=== PATIENT | female | born 1960 | race Two or more races ===

== ENCOUNTER 2023-10-08 10:00 | Inpatient (IN) | payer MEDICAID, OTHER ==
[~2023-10-08] VITALS: Ht 179.1 cm; Wt 62.7 kg
[2023-10-08 12:22] LABS: Basophils # (auto) 0 10 ^3/uL (0-0.2); Basophils % (auto) 0.7 % (0.0-2.0); Eosinophils # (auto) 0.1 10 ^3/uL (0-0.8); Eosinophils % (auto) 1.4 % (0.0-7.0); Hematocrit 34.9 % (36.0-46.0); Hemoglobin 11.8 g/dL (12.2-16.2); Lymphocytes # (auto) 1.7 10 ^3/uL (0.4-5.4); Lymphocytes % (auto) 36.8 % (10.0-50.0); Mean Corpuscular Hemoglobin 34.1 pg (28.0-32.0); Mean Corpuscular Hgb Conc. 33.9 g/dL (32.0-36.0); Mean Corpuscular Volume 100.5 fL (80.0-100.0); Monocytes # (auto) 0.8 10 ^3/uL (0-1.3); Neutrophils # (auto) 2.1 10 ^3/uL (1.6-8.6); Neutrophils % (auto) 45.1 % (37.0-80.0); Nucleated Red Blood Cells % 1.3 %; Red Blood Cells 3.47 10^6/uL (4.0-5.20); Red Cell Distribution Width 13.7 % (11.8-14.3); White Blood Cell 4.7 10^3/uL (4.4-10.8)
[2023-10-08 12:23] LABS: Alanine Aminotransferase 19 U/L (7-40); Albumin 1.9 g/dL (3.2-4.8); Alkaline Phosphatase 135 U/L (46-116); Anion Gap 3 (5-15); Aspartate Aminotransferase 67 U/L (13-40); Calcium 7.3 mg/dL (8.7-10.4); Carbon Dioxide 27 mmol/L (20-30); Chloride 104 mmol/L (98-107); Glucose 76 mg/dL (74-106); Potassium 3.6 mmol/L (3.5-5.1); Sodium 134 mmol/L (136-145)
[2023-10-08 12:24] LABS: Bilirubin, Total 3.3 mg/dL (0.2-1.0); Total Protein 8.3 g/dL (5.7-8.2)
[2023-10-08 12:28] LABS: INR 1.6 (0.9-1.15); Prothrombin Time 16.4 sec (9.3-11.8)
[2023-10-08 12:30] LABS: BUN/Creatinine Ratio 6.4 (10.0-20.0); Blood Urea Nitrogen < 5 mg/dL (9-23)
[2023-10-08] MEDS: MORPHINE SULFATE 4 MG/ML SYR/VIAL IV ONE (12:35)
[2023-10-08] MEDS: CEFEPIME 2GM/50ML NS 50 ML IV ONE (12:36)
[2023-10-08] MEDS: ONDANSETRON HCL 4 MG/2 ML VIAL IV ONE (12:36)
[2023-10-08 13:17] LABS: Platelet Estimate Decreased
[2023-10-08 13:18] LABS: Macrocytosis Slight
[2023-10-08 13:23] VITALS: PULSE 80; RESP 30; O2SAT 98
[2023-10-08] MEDS ORDERED: ACETAMINOPHEN 325 MG TAB PO PRN (14:15)
[2023-10-08 16:26] LABS: Body Fluid Red Blood Cells 153 CUMM (0-2000); Body Fluid White Blood Cells 35 CUMM (0-200)
[2023-10-08 16:28] LABS: Body Fluid Polymorphonuclear 3 % (0-25)
[2023-10-08] MEDS: ALBUMIN 25% 100 ML IV SCH (16:54)
[2023-10-08] MEDS ORDERED: FUR20T PO (20:26)
[2023-10-08] MEDS ORDERED: ZOFR4T PO (20:26)
[2023-10-08 21:00] VITALS: BP 98/47; PULSE 89; RESP 18; TEMP 98.2; O2SAT 99
[2023-10-08] MEDS: SODIUM CHLOR 0.9% PF (SALINE LOCK) 10ML VIAL/SYR IV SCH (22:05)
[2023-10-09 00:41] VITALS: BP 95/47; PULSE 92; RESP 16; TEMP 98; O2SAT 97
[2023-10-09] MEDS: HYDROcodone-ACET 5/325MG TAB PO PRN (01:58)
[2023-10-09 04:44] VITALS: BP 97/49; PULSE 86; RESP 16; TEMP 97.8; O2SAT 96
[2023-10-09 08:00] VITALS: BP 107/51; PULSE 69; PULSE 79; RESP 16; RESP 20; TEMP 98; O2SAT 100; O2SAT 93
[2023-10-09] MEDS: ALBUMIN 25% 100 ML IV SCH ×2 (09:48→17:00)
[2023-10-09] MEDS: PANTOPRAZOLE 40 MG/10 ML VIAL INJ IV SCH (09:58)
[2023-10-09] MEDS: DOCUSATE SOD 100 MG CAP PO PRN (10:12)
[2023-10-09] MEDS: ONDANSETRON HCL 4 MG/2 ML VIAL IV PRN (10:12)
[2023-10-09] MEDS: BISMUTH SUBSALICYLATE 262MG/15ml ORAL Susp PO PRN (11:05)
[2023-10-09 12:06] LABS: Protein, Body Fluid 2.3 g/dL (.)
[2023-10-09] MEDS: SPIRONOLACTONE 25 MG TAB PO ONE (13:00)
[2023-10-09] MEDS: FUROSEMIDE 40 MG TAB PO ONE (13:00)
[2023-10-09 14:15] VITALS: BP 109/51; PULSE 91; RESP 18; TEMP 98.2; O2SAT 98
[2023-10-09 15:07] LABS: Hemoglobin 10.9 g/dL (12.2-16.2); Red Cell Distribution Width 13.4 % (11.8-14.3); White Blood Cell 5.8 10^3/uL (4.4-10.8)
[2023-10-09 15:08] LABS: Hematocrit 31.6 % (36.0-46.0); Mean Corpuscular Hemoglobin 34.6 pg (28.0-32.0); Mean Corpuscular Hgb Conc. 34.5 g/dL (32.0-36.0); Mean Corpuscular Volume 100.2 fL (80.0-100.0); Red Blood Cells 3.15 10^6/uL (4.0-5.20)
[2023-10-09 15:23] LABS: Band Neutrophils % (manual) 0; Basophils % (manual) 0 (0.0-2.0); Blast Cells 0; Eosinophils % (manual) 0 (0-7); Metamyelocytes % 0; Myelocytes % 0; Promyelocytes % 0; Reactive Lymphocytes 0
[2023-10-09 15:28] LABS: Albumin 2.1 g/dL (3.2-4.8); Alkaline Phosphatase 105 U/L (46-116); Anion Gap 2 (5-15); Aspartate Aminotransferase 39 U/L (13-40); BUN/Creatinine Ratio 9.6 (10.0-20.0); Bilirubin, Total 2.6 mg/dL (0.2-1.0); Blood Urea Nitrogen 7 mg/dL (9-23); Calcium 7.7 mg/dL (8.7-10.4); Carbon Dioxide 26 mmol/L (20-30); Chloride 107 mmol/L (98-107); Glucose 101 mg/dL (74-106); Potassium 3.9 mmol/L (3.5-5.1); Sodium 135 mmol/L (136-145); Total Protein 6.3 g/dL (5.7-8.2)
[2023-10-09 15:29] LABS: Alanine Aminotransferase 9 U/L (7-40)
[2023-10-09 16:37] LABS: Lymphocytes % (manual) 22 (10.0-50.0); Macrocytosis Slight; Monocytes % (manual) 18 (0-12); Platelet Estimate Decreased
[2023-10-09 20:00] VITALS: RESP 18
[2023-10-09 21:00] VITALS: BP 114/63; PULSE 95; RESP 21; TEMP 98.6; O2SAT 98
[2023-10-10 05:00] VITALS: BP 119/69; PULSE 86; RESP 21; TEMP 97.6; O2SAT 97
[2023-10-10 06:28] LABS: Folate (Folic Acid) 7.01 ng/mL (>5.38)
[2023-10-10 06:29] LABS: Alanine Aminotransferase 10 U/L (7-40); Albumin 2.4 g/dL (3.2-4.8); Alkaline Phosphatase 97 U/L (46-116); Anion Gap 3 (5-15); Aspartate Aminotransferase 42 U/L (13-40); BUN/Creatinine Ratio 10.5 (10.0-20.0); Blood Urea Nitrogen 8 mg/dL (9-23); Calcium 7.9 mg/dL (8.7-10.4); Carbon Dioxide 27 mmol/L (20-30); Chloride 104 mmol/L (98-107); Glucose 104 mg/dL (74-106); Potassium 3.7 mmol/L (3.5-5.1); Sodium 134 mmol/L (136-145)
[2023-10-10 06:30] LABS: Bilirubin, Total 3.1 mg/dL (0.2-1.0); Total Protein 6.8 g/dL (5.7-8.2)
[2023-10-10 06:56] LABS: Basophils # (auto) 0 10 ^3/uL (0-0.2); Basophils % (auto) 0.6 % (0.0-2.0); Eosinophils # (auto) 0.1 10 ^3/uL (0-0.8); Hematocrit 33.1 % (36.0-46.0); Hemoglobin 11.1 g/dL (12.2-16.2); Lymphocytes # (auto) 1.6 10 ^3/uL (0.4-5.4); Lymphocytes % (auto) 27.3 % (10.0-50.0); Mean Corpuscular Hgb Conc. 33.7 g/dL (32.0-36.0); Mean Corpuscular Volume 100.9 fL (80.0-100.0); Monocytes # (auto) 1.2 10 ^3/uL (0-1.3); Neutrophils # (auto) 2.9 10 ^3/uL (1.6-8.6); Neutrophils % (auto) 49.9 % (37.0-80.0); Nucleated Red Blood Cells % 0.6 %; Red Blood Cells 3.28 10^6/uL (4.0-5.20); Red Cell Distribution Width 13.3 % (11.8-14.3); White Blood Cell 5.9 10^3/uL (4.4-10.8)
[2023-10-10 06:59] LABS: Monocytes % (auto) 20.2 % (0.0-12.0)
[2023-10-10] MEDS ORDERED: [UNRECOGNIZED DRUG - CODE] PO (07:54)
[2023-10-10] MEDS ORDERED: SPIR25TA PO (07:54)
[2023-10-10] MEDS ORDERED: FURO40TA4 PO (07:54)
[2023-10-10 09:04] VITALS: BP 118/65; PULSE 81; RESP 15; TEMP 97.9; O2SAT 99
[2023-10-10] MEDS ORDERED: FUROSEMIDE 40 MG TAB PO SCH (10:00)
[2023-10-10] MEDS ORDERED: SPIRONOLACTONE 25 MG TAB PO SCH (10:00)
[2023-10-13 10:01] LABS: Hepatitis B Surface Antigen Negative (Negative)
[2023-10-13 10:22] LABS: Hepatitis A Ab IgM Negative; Hepatitis B Core IgM Negative
[2023-10-13 12:18] LABS: Hepatitis C Antibody Reactive (Negative)
== END 2023-10-10 10:00 | disposition home or self-care (01) | DRG 280 ==
LOC: ER 10:00 → OVERFLOW 14:13 → CENTRAL 18:54
PROVIDERS: ADMIT Internal Medicine Geriatric Medicine; ATTEND Internal Medicine Geriatric Medicine
PROC: 0W9G3ZZ Drainage of Peritoneal Cavity, Percutaneous Approach (ICD-10-PCS; principal; 2023-10-08)
DX: K70.31 Alcoholic cirrhosis of liver with ascites (principal); E43 Unspecified severe protein-calorie malnutrition; D68.59 Other primary thrombophilia; I95.89 Other hypotension; D69.6 Thrombocytopenia, unspecified; D63.8 Anemia in other chronic diseases classified elsewhere; D53.9 Nutritional anemia, unspecified; D50.9 Iron deficiency anemia, unspecified; R74.01 Elevation of levels of liver transaminase levels; Z68.1 Body mass index [BMI] 19.9 or less, adult; Z79.899 Other long term (current) drug therapy
CPT/HCPCS: 36415; 49083; 76705; 76942; 80053; 80074; 80320; 82140; 82607; 82746; 83605; 83986; 85007; 85025; 85027; 85610; 87205; 89051; 93005; G0378; J0692; J2405; J2470; P9047

== ENCOUNTER 2023-10-21 06:53 | Inpatient (IN) | payer MEDICAID ==
[2023-10-21] VITALS (7 sets, daily range): BP systolic 117–124; BP diastolic 64–70; PULSE 71–81; RESP 14–75; TEMP 97.1–97.6; O2SAT 97–100
[~2023-10-21] VITALS: Ht 175.3 cm; Wt 56.2 kg
[~2023-10-21 06:53] MED LIST: FURO20TA4 PO; FURO40TA4 PO; SPIR25TA PO; ZOFR4T PO; [UNRECOGNIZED DRUG - CODE] PO
[2023-10-21 07:37] LABS: Basophils % (auto) 0.6 % (0.0-2.0); Eosinophils # (auto) 0 10 ^3/uL (0-0.8); Eosinophils % (auto) 0.1 % (0.0-7.0); Lymphocytes # (auto) 1.3 10 ^3/uL (0.4-5.4); White Blood Cell 8.4 10^3/uL (4.4-10.8)
[2023-10-21 07:40] LABS: Alanine Aminotransferase 13 U/L (7-40); Albumin 2.5 g/dL (3.2-4.8); Alkaline Phosphatase 91 U/L (46-116); Anion Gap 6 (5-15); Aspartate Aminotransferase 51 U/L (13-40); BUN/Creatinine Ratio 11.4 (10.0-20.0); Blood Urea Nitrogen 9 mg/dL (9-23); Calcium 8.1 mg/dL (8.7-10.4); Carbon Dioxide 25 mmol/L (20-30); Chloride 99 mmol/L (98-107); Glucose 95 mg/dL (74-106); Potassium 3.8 mmol/L (3.5-5.1); Sodium 130 mmol/L (136-145)
[2023-10-21 07:42] LABS: Basophils # (auto) 0 10 ^3/uL (0-0.2); Hematocrit 37.8 % (36.0-46.0); Hemoglobin 13.2 g/dL (12.2-16.2); Lymphocytes % (auto) 15.8 % (10.0-50.0); Mean Corpuscular Hemoglobin 35.1 pg (28.0-32.0); Mean Corpuscular Hgb Conc. 34.9 g/dL (32.0-36.0); Mean Corpuscular Volume 100.5 fL (80.0-100.0); Monocytes # (auto) 1.2 10 ^3/uL (0-1.3); Monocytes % (auto) 13.8 % (0.0-12.0); Neutrophils # (auto) 5.8 10 ^3/uL (1.6-8.6); Neutrophils % (auto) 69.7 % (37.0-80.0); Nucleated Red Blood Cells % 0.2 %; Red Blood Cells 3.76 10^6/uL (4.0-5.20); Red Cell Distribution Width 13.7 % (11.8-14.3)
[2023-10-21] MEDS: ONDANSETRON HCL 4 MG/2 ML VIAL IV ONE (07:56)
[2023-10-21] MEDS: ASPirin 325 MG TAB PO ONE (07:56)
[2023-10-21] MEDS: MORPHINE SULFATE 4 MG/ML SYR/VIAL IV ONE (07:57)
[2023-10-21] MEDS: SODIUM CHLORIDE 0.9% 1,000 ML IV ONE (07:58)
[2023-10-21] MEDS ORDERED: HYDROcodone-ACET 5/325MG TAB PO PRN (09:45)
[2023-10-21] MEDS ORDERED: ACETAMINOPHEN 325 MG TAB PO PRN (09:45)
[2023-10-21] MEDS ORDERED: ONDANSETRON HCL 4 MG/2 ML VIAL IV PRN (09:45)
[2023-10-21] MEDS ORDERED: DOCUSATE SOD 100 MG CAP PO PRN (09:45)
[2023-10-21] MEDS: FUROSEMIDE 40 MG TAB PO SCH (10:00)
[2023-10-21] MEDS: SPIRONOLACTONE 25 MG TAB PO SCH (10:00)
[2023-10-21 10:28] LABS: INR 1.49 (0.9-1.15); Partial Thromboplastin Time 32.3 SEC (24.5-34.5); Prothrombin Time 15.3 sec (9.3-11.8)
[2023-10-21] MEDS: SODIUM CHLOR 0.9% PF (SALINE LOCK) 10ML VIAL/SYR IV SCH (13:29)
[2023-10-21] MEDS ORDERED: GADOTERATE MEG 10 MMOL/20ml INJ (0.5MMOL/ml) IV ONE (13:35)
[2023-10-21 16:26] LABS: Body Fluid Polymorphonuclear 15 % (0-25); Body Fluid Red Blood Cells 225 CUMM (0-2000); Body Fluid White Blood Cells 260 CUMM (0-200)
[2023-10-22] VITALS (7 sets, daily range): BP systolic 101–148; BP diastolic 55–76; PULSE 0–91; RESP 15–16; TEMP 97–97.9; O2SAT 97–98
[2023-10-22] MEDS ORDERED: MORPHINE SULFATE INJ 2 MG/ml SYRG IV PRN (09:45)
[2023-10-22] MEDS: PANTOPRAZOLE 40 MG/10 ML VIAL INJ IV ONE (09:45)
[2023-10-22 11:25] LABS: CRP High Sensitivity 0.98 mg/dL (<1.0)
[2023-10-22 11:26] LABS: Bilirubin, Direct 2.4 mg/dL (<0.3)
[2023-10-22 11:34] LABS: INR 1.51 (0.9-1.15); Partial Thromboplastin Time 32.2 SEC (24.5-34.5); Prothrombin Time 15.5 sec (9.3-11.8)
[2023-10-22] MEDS: PANTOPRAZOLE 40 MG/10 ML VIAL INJ IV SCH (12:54)
[2023-10-22 13:07] LABS: Protein, Body Fluid 3.6 g/dL (.)
[2023-10-22] MEDS ORDERED: GASTROGRAFIN 120 ML SOL ONE (13:48)
[2023-10-22] MEDS ORDERED: PANT40TA2 PO (16:56)
[2023-10-22] MEDS ORDERED: HYDR-3682 PO (16:56)
[2023-10-22] MEDS: FOLIC ACID 1 MG, MULTIPLE VITAMIN 10 ML, MAGNESIUM SULF SDV 50% 8 MEQ, THIAMINE INJ 100... INJ SCH (18:04)
[2023-10-23 09:00] VITALS: BP 118/73; PULSE 90; RESP 19; TEMP 98; O2SAT 94
[2023-10-23 13:00] VITALS: BP 112/70; PULSE 84; RESP 19; TEMP 98.1; O2SAT 95
[2023-10-23 16:50] VITALS: BP 107/68; PULSE 71; RESP 17; TEMP 98.4; O2SAT 100
== END 2023-10-23 20:55 | disposition home or self-care (01) | DRG 280 ==
LOC: ER 06:53 → OVERFLOW 09:41 → WEST WING 10:53
PROVIDERS: ADMIT Internal Medicine; ATTEND Internal Medicine
PROC: 0W9G3ZZ Drainage of Peritoneal Cavity, Percutaneous Approach (ICD-10-PCS; principal; 2023-10-21)
DX: K70.31 Alcoholic cirrhosis of liver with ascites (principal); K56.609 Unspecified intestinal obstruction, unspecified as to partial versus complete obstruction; E43 Unspecified severe protein-calorie malnutrition; K43.6 Other and unspecified ventral hernia with obstruction, without gangrene; K80.20 Calculus of gallbladder without cholecystitis without obstruction; R23.0 Cyanosis; K76.89 Other specified diseases of liver; R07.89 Other chest pain; Z68.1 Body mass index [BMI] 19.9 or less, adult
CPT/HCPCS: 36415; 49083; 71045; 74018; 74176; 74183; 74250; 76705; 76942; 80053; 82105; 82247; 82248; 83615; 83880; 83986; 84484; 85025; 85610; 85730; 86141; 87081; 87205; 89051; 93005; 96374; 96375; G0378; J2405; J2470

== ENCOUNTER 2023-10-31 06:19 | Emergency (ER) | payer MEDICAID ==
[~2023-10-31] VITALS: Ht 177.8 cm; Wt 51.8 kg
[~2023-10-31 06:19] MED LIST changes: -FURO20TA4 PO; +HYDR-3682 PO; +PANT40TA2 PO
[2023-10-31 06:54] VITALS: TEMP 96.7
[2023-10-31 06:55] VITALS: PULSE 87; RESP 22; O2SAT 98
[2023-10-31] MEDS: fentaNYL CITRATE 100 MCG/2 ML VL IV ONE ×3 (07:03→07:31)
[2023-10-31 07:35] LABS: Eosinophils # (auto) 0 10 ^3/uL (0-0.8); Eosinophils % (auto) 0.4 % (0.0-7.0); Nucleated Red Blood Cells % 0.4 %; White Blood Cell 5.8 10^3/uL (4.4-10.8)
[2023-10-31 07:41] LABS: Basophils # (auto) 0.1 10 ^3/uL (0-0.2); Basophils % (auto) 0.9 % (0.0-2.0); Hematocrit 37.1 % (36.0-46.0); Hemoglobin 12.8 g/dL (12.2-16.2); Lymphocytes # (auto) 1.3 10 ^3/uL (0.4-5.4); Lymphocytes % (auto) 22.6 % (10.0-50.0); Mean Corpuscular Hgb Conc. 34.4 g/dL (32.0-36.0); Mean Corpuscular Volume 101.8 fL (80.0-100.0); Monocytes % (auto) 17.3 % (0.0-12.0); Neutrophils # (auto) 3.4 10 ^3/uL (1.6-8.6); Neutrophils % (auto) 58.8 % (37.0-80.0); Red Blood Cells 3.65 10^6/uL (4.0-5.20)
[2023-10-31] MEDS: MIDAZOLAM HCL 2MG/2ML 2ml VIAL (1mg/ml) IV ONE (07:45)
[2023-10-31 07:53] LABS: Alanine Aminotransferase 15 U/L (7-40); Albumin 2.5 g/dL (3.2-4.8); Alkaline Phosphatase 89 U/L (46-116); Anion Gap 4 (5-15); Aspartate Aminotransferase 42 U/L (13-40); BUN/Creatinine Ratio 9.8 (10.0-20.0); Blood Urea Nitrogen 8 mg/dL (9-23); Calcium 8.4 mg/dL (8.7-10.4); Carbon Dioxide 27 mmol/L (20-30); Chloride 102 mmol/L (98-107); Glucose 88 mg/dL (74-106); Potassium 3.6 mmol/L (3.5-5.1); Sodium 133 mmol/L (136-145)
[2023-10-31 07:54] LABS: Bilirubin, Total 3.3 mg/dL (0.2-1.0)
[2023-10-31 08:00] VITALS: PULSE 89; RESP 18; O2SAT 98
[2023-10-31 10:14] VITALS: BP 127/56; PULSE 79; RESP 22; O2SAT 98
== END 2023-10-31 11:09 | disposition home or self-care (01) ==
LOC: ER 06:19
DX: K46.0 Unspecified abdominal hernia with obstruction, without gangrene (principal); F14.10 Cocaine abuse, uncomplicated; Z79.899 Other long term (current) drug therapy
CPT/HCPCS: 36415; 74176; 80053; 83605; 85025; 96374; 96376; 99285; J2250; J3010

== ENCOUNTER 2023-11-06 07:09 | Inpatient (IN) | payer MEDICAID ==
[~2023-11-06] VITALS: Ht 177.8 cm; Wt 53.6 kg
[2023-11-06 08:40] VITALS: O2SAT 100
[2023-11-06] MEDS ORDERED: ONDANSETRON HCL 4 MG/2 ML VIAL IV PRN (09:45)
[2023-11-06] MEDS ORDERED: MORPHINE SULFATE INJ 2 MG/ml SYRG IV PRN (09:45)
[2023-11-06 10:05] LABS: Basophils # (auto) 0 10 ^3/uL (0-0.2); Basophils % (auto) 0.5 % (0.0-2.0); Eosinophils # (auto) 0 10 ^3/uL (0-0.8); Eosinophils % (auto) 0.9 % (0.0-7.0); Hemoglobin 12.4 g/dL (12.2-16.2); Lymphocytes # (auto) 1.3 10 ^3/uL (0.4-5.4); Lymphocytes % (auto) 27.8 % (10.0-50.0); Mean Corpuscular Hemoglobin 35.4 pg (28.0-32.0); Mean Corpuscular Hgb Conc. 34.6 g/dL (32.0-36.0); Mean Corpuscular Volume 102.4 fL (80.0-100.0); Monocytes # (auto) 0.8 10 ^3/uL (0-1.3); Monocytes % (auto) 16.9 % (0.0-12.0); Neutrophils # (auto) 2.5 10 ^3/uL (1.6-8.6); Neutrophils % (auto) 53.9 % (37.0-80.0); Nucleated Red Blood Cells % 0.3 %; Platelet Count (auto) 118 10^3/uL (140-450); Red Blood Cells 3.52 10^6/uL (4.0-5.20); Red Cell Distribution Width 13.8 % (11.8-14.3); White Blood Cell 4.6 10^3/uL (4.4-10.8)
[2023-11-06 10:10] LABS: Chloride 101 mmol/L (98-107); Potassium 3.6 mmol/L (3.5-5.1); Sodium 132 mmol/L (136-145)
[2023-11-06 10:11] LABS: Anion Gap 0 (5-15); Calcium 8.2 mg/dL (8.7-10.4); Carbon Dioxide 31 mmol/L (20-30)
[2023-11-06 10:16] LABS: BUN/Creatinine Ratio 12.7 (10.0-20.0); Blood Urea Nitrogen 9 mg/dL (9-23); Glucose 81 mg/dL (74-106)
[2023-11-06] MEDS: SPIRONOLACTONE 25 MG TAB PO SCH (10:21)
[2023-11-06] MEDS: PANTOPRAZOLE 40 MG/10 ML VIAL INJ IV ONE (10:21)
[2023-11-06] MEDS: FUROSEMIDE 40 MG TAB PO SCH (10:21)
[2023-11-06] MEDS ORDERED: NITROGLYCERIN 0.4 MG SL TAB SL PRN (10:45)
[2023-11-06] MEDS: ALBUMIN 25% 50 ML IV SCH (15:49)
[2023-11-06 18:19] VITALS: BP 137/84; PULSE 84; RESP 16; TEMP 98.5; O2SAT 97
[2023-11-06 20:00] VITALS: PULSE 80; RESP 17
[2023-11-06 22:00] VITALS: BP 135/79; PULSE 80; RESP 17; TEMP 98.3; O2SAT 97
[2023-11-06] MEDS: PANTOPRAZOLE 40 MG/10 ML VIAL INJ IV SCH (22:33)
[2023-11-07 01:00] VITALS: BP 101/81; PULSE 78; RESP 17; TEMP 98; O2SAT 97
[2023-11-07 05:00] VITALS: BP 100/55; PULSE 82; RESP 18; TEMP 98.4; O2SAT 100
[2023-11-07 08:03] LABS: Basophils # (auto) 0 10 ^3/uL (0-0.2); Eosinophils # (auto) 0.1 10 ^3/uL (0-0.8); Lymphocytes # (auto) 1.3 10 ^3/uL (0.4-5.4); Mean Corpuscular Hgb Conc. 34.2 g/dL (32.0-36.0); Monocytes # (auto) 0.8 10 ^3/uL (0-1.3); Red Blood Cells 3.06 10^6/uL (4.0-5.20)
[2023-11-07 08:06] LABS: Basophils % (auto) 0.7 % (0.0-2.0); Eosinophils % (auto) 1.7 % (0.0-7.0); Hematocrit 31.1 % (36.0-46.0); Hemoglobin 10.6 g/dL (12.2-16.2); Lymphocytes % (auto) 34.6 % (10.0-50.0); Mean Corpuscular Hemoglobin 34.7 pg (28.0-32.0); Mean Corpuscular Volume 101.5 fL (80.0-100.0); Monocytes % (auto) 21.1 % (0.0-12.0); Neutrophils # (auto) 1.5 10 ^3/uL (1.6-8.6); Neutrophils % (auto) 41.9 % (37.0-80.0); Nucleated Red Blood Cells % 0.1 %; Platelet Count (auto) 96 10^3/uL (140-450); Red Cell Distribution Width 14.2 % (11.8-14.3); White Blood Cell 3.6 10^3/uL (4.4-10.8)
[2023-11-07 08:12] LABS: Alanine Aminotransferase 11 U/L (7-40); Albumin 2.3 g/dL (3.2-4.8); Alkaline Phosphatase 95 U/L (46-116); Aspartate Aminotransferase 35 U/L (13-40); BUN/Creatinine Ratio 11.9 (10.0-20.0); Blood Urea Nitrogen 8 mg/dL (9-23); Glucose 82 mg/dL (74-106)
[2023-11-07 08:13] LABS: Bilirubin, Total 1.6 mg/dL (0.2-1.0); Total Protein 6.6 g/dL (5.7-8.2)
[2023-11-07 08:38] LABS: Anion Gap -2 (5-15); Carbon Dioxide 30 mmol/L (20-30); Chloride 106 mmol/L (98-107); Potassium 3.9 mmol/L (3.5-5.1); Sodium 134 mmol/L (136-145)
[2023-11-07 09:00] VITALS: BP 101/54; PULSE 72; RESP 18; TEMP 98.2; O2SAT 100
[2023-11-07] MEDS: LACTULOSE 20Gm/30ML SOLN PO SCH (09:09)
[2023-11-07] MEDS: DOCUSATE SOD 100 MG CAP PO PRN (09:11)
[2023-11-07 09:25] LABS: INR 1.45 (0.9-1.15); Partial Thromboplastin Time 31.9 SEC (24.5-34.5)
== END 2023-11-07 11:30 | disposition home or self-care (01) | DRG 280 ==
LOC: ER 07:09 → OVERFLOW 10:33 → TELE 15:29 → OVERFLOW 15:31 → CENTRAL 16:52
PROVIDERS: ADMIT Internal Medicine; ATTEND Internal Medicine
PROC: 0W9G3ZZ Drainage of Peritoneal Cavity, Percutaneous Approach (ICD-10-PCS; principal; 2023-11-06)
DX: K70.31 Alcoholic cirrhosis of liver with ascites (principal); E43 Unspecified severe protein-calorie malnutrition; K80.20 Calculus of gallbladder without cholecystitis without obstruction; Z53.29 Procedure and treatment not carried out because of patient's decision for other reasons; K76.89 Other specified diseases of liver; Z88.6 Allergy status to analgesic agent; Z68.1 Body mass index [BMI] 19.9 or less, adult; B19.20 Unspecified viral hepatitis C without hepatic coma
CPT/HCPCS: 36415; 49083; 76705; 76942; 80048; 80053; 85025; 85610; 85730; 96372; G0378; J2470

== ENCOUNTER 2023-11-15 17:57 | Inpatient (IN) | payer MEDICAID ==
[~2023-11-15] VITALS: Ht 165.1 cm; Wt 60.4 kg
[2023-11-15] MEDS ORDERED: DEXTROSE (50%) 50ML SYRG IV ONE (18:15)
[2023-11-15 18:38] LABS: Basophils # (auto) 0 10 ^3/uL (0-0.2); Basophils % (auto) 0.6 % (0.0-2.0); Eosinophils # (auto) 0.1 10 ^3/uL (0-0.8); Eosinophils % (auto) 1.5 % (0.0-7.0); Hematocrit 34.4 % (36.0-46.0); Hemoglobin 11.6 g/dL (12.2-16.2); Lymphocytes # (auto) 1.4 10 ^3/uL (0.4-5.4); Lymphocytes % (auto) 30.2 % (10.0-50.0); Mean Corpuscular Hemoglobin 34.1 pg (28.0-32.0); Mean Corpuscular Hgb Conc. 33.7 g/dL (32.0-36.0); Mean Corpuscular Volume 101.4 fL (80.0-100.0); Monocytes # (auto) 0.8 10 ^3/uL (0-1.3); Monocytes % (auto) 17.2 % (0.0-12.0); Neutrophils # (auto) 2.3 10 ^3/uL (1.6-8.6); Neutrophils % (auto) 50.5 % (37.0-80.0); Nucleated Red Blood Cells % 0.1 %; Platelet Count (auto) 100 10^3/uL (140-450); Red Blood Cells 3.39 10^6/uL (4.0-5.20); Red Cell Distribution Width 13.9 % (11.8-14.3); White Blood Cell 4.6 10^3/uL (4.4-10.8)
[2023-11-15] MEDS: SODIUM CHLORIDE 0.9% 500 ML IV ONE (18:45)
[2023-11-15 18:55] LABS: Alanine Aminotransferase 16 U/L (7-40); Albumin 2.4 g/dL (3.2-4.8); Alkaline Phosphatase 170 U/L (46-116); Anion Gap 2 (5-15); Aspartate Aminotransferase 49 U/L (13-40); BUN/Creatinine Ratio 9.7 (10.0-20.0); Blood Urea Nitrogen 6 mg/dL (9-23); Calcium 8.1 mg/dL (8.7-10.4); Carbon Dioxide 26 mmol/L (20-30); Chloride 105 mmol/L (98-107); Glucose 97 mg/dL (74-106); Potassium 3.8 mmol/L (3.5-5.1); Sodium 133 mmol/L (136-145)
[2023-11-15 18:56] LABS: Total Protein 7.8 g/dL (5.7-8.2)
[2023-11-15] MEDS: ONDANSETRON HCL 4 MG/2 ML VIAL IV ONE (19:55)
[2023-11-15] MEDS: MORPHINE SULFATE 4 MG/ML SYR/VIAL IV ONE (19:55)
[2023-11-15 20:00] VITALS: PULSE 82; RESP 17; O2SAT 98
[2023-11-15] MEDS ORDERED: MORPHINE SULFATE INJ 2 MG/ml SYRG IV PRN (22:00)
[2023-11-15] MEDS: ALBUMIN 25% 100 ML IV ONE (22:00)
[2023-11-15] MEDS ORDERED: HYDROcodone-ACET 5/325MG TAB PO PRN (22:00)
[2023-11-15] MEDS: SODIUM CHLORIDE 0.9% 1,000 ML IV SCH (22:00)
[2023-11-15] MEDS ORDERED: IBUPROFEN 600 MG TAB PO PRN (22:00)
[2023-11-15] MEDS ORDERED: NITROGLYCERIN 0.4 MG SL TAB SL PRN (22:00)
[2023-11-15] MEDS ORDERED: DOCUSATE SOD 100 MG CAP PO PRN (22:00)
[2023-11-15 22:21] LABS: Urine Bacteria None Seen /hpf (None Seen)
[2023-11-15 22:34] LABS: Urine Blood Negative /uL (Negative); Urine Clarity Clear (Clear); Urine Color Light-Yellow (Yellow); Urine Protein, UAD Negative (Negative); Urine Specific Gravity 1.006 (1.001-1.035); Urine Urobilinogen Normal (Negative); Urine WBC <1 /hpf (0 - 5)
[2023-11-15] MEDS: FAMOTIDINE (10MG/ML) 2ML VL IV SCH (23:03)
[2023-11-15] MEDS: LACTULOSE 20Gm/30ML SOLN PO SCH (23:03)
[2023-11-16] VITALS (7 sets, daily range): BP systolic 108–134; BP diastolic 61–70; PULSE 76–98; RESP 18–20; TEMP 97–98; O2SAT 98–100
[2023-11-16] MEDS: MORPHINE SULFATE INJ 2 MG/ml SYRG IV PRN (00:35)
[2023-11-16] MEDS: ONDANSETRON HCL 4 MG/2 ML VIAL IV PRN (00:36)
[2023-11-16] MEDS ORDERED: DOCU-94 PO (05:58)
[2023-11-16] MEDS ORDERED: SPIR50TA2 PO (05:58)
[2023-11-16] MEDS ORDERED: FURO1TAB31 PO (05:58)
[2023-11-16 07:19] LABS: Hematocrit 34.6 % (36.0-46.0); Hemoglobin 11.6 g/dL (12.2-16.2); Mean Corpuscular Hemoglobin 34.2 pg (28.0-32.0); Mean Corpuscular Hgb Conc. 33.4 g/dL (32.0-36.0); Mean Corpuscular Volume 102.3 fL (80.0-100.0); Platelet Count (auto) 98 10^3/uL (140-450); Red Blood Cells 3.39 10^6/uL (4.0-5.20); Red Cell Distribution Width 14.2 % (11.8-14.3); White Blood Cell 4.4 10^3/uL (4.4-10.8)
[2023-11-16 07:21] LABS: Basophils % (manual) 0 (0.0-2.0); Blast Cells 0; Metamyelocytes % 0; Myelocytes % 0; Promyelocytes % 0; Reactive Lymphocytes 0
[2023-11-16 07:22] LABS: Alanine Aminotransferase 17 U/L (7-40); Albumin 2.5 g/dL (3.2-4.8); Alkaline Phosphatase 110 U/L (46-116); Anion Gap 2 (5-15); Aspartate Aminotransferase 47 U/L (13-40); Carbon Dioxide 28 mmol/L (20-30); Chloride 106 mmol/L (98-107); Glucose 81 mg/dL (74-106); Potassium 3.4 mmol/L (3.5-5.1); Sodium 136 mmol/L (136-145); Total Protein 7.5 g/dL (5.7-8.2)
[2023-11-16 07:41] LABS: BUN/Creatinine Ratio 7.6 (10.0-20.0); Blood Urea Nitrogen < 5 mg/dL (9-23)
[2023-11-16 08:44] LABS: Band Neutrophils % (manual) 1; Eosinophils % (manual) 2 (0-7); Lymphocytes % (manual) 29 (10.0-50.0); Monocytes % (manual) 20 (0-12)
[2023-11-16 08:45] LABS: Macrocytosis Slight; Platelet Estimate Decreased
[2023-11-16] MEDS: SPIRONOLACTONE 25 MG TAB PO SCH (10:50)
[2023-11-16] MEDS: POTASSIUM CHL 20 Meq TABLET PO ONE (14:40)
[2023-11-17] VITALS (8 sets, daily range): BP systolic 89–126; BP diastolic 45–83; PULSE 75–91; RESP 14–18; TEMP 97.6–97.9; O2SAT 94–100
[2023-11-17 10:46] LABS: Basophils # (auto) 0 10 ^3/uL (0-0.2); Basophils % (auto) 0.6 % (0.0-2.0); Eosinophils # (auto) 0.1 10 ^3/uL (0-0.8); Hemoglobin 11.4 g/dL (12.2-16.2); Monocytes # (auto) 0.8 10 ^3/uL (0-1.3); Neutrophils # (auto) 2.1 10 ^3/uL (1.6-8.6); White Blood Cell 4.1 10^3/uL (4.4-10.8)
[2023-11-17 10:47] LABS: Eosinophils % (auto) 1.3 % (0.0-7.0); Hematocrit 32.8 % (36.0-46.0); Lymphocytes # (auto) 1.1 10 ^3/uL (0.4-5.4); Lymphocytes % (auto) 27.6 % (10.0-50.0); Mean Corpuscular Hemoglobin 35.2 pg (28.0-32.0); Mean Corpuscular Hgb Conc. 34.8 g/dL (32.0-36.0); Monocytes % (auto) 20.4 % (0.0-12.0); Neutrophils % (auto) 50.1 % (37.0-80.0); Nucleated Red Blood Cells % 0.2 %; Platelet Count (auto) 99 10^3/uL (140-450); Red Blood Cells 3.25 10^6/uL (4.0-5.20); Red Cell Distribution Width 13.7 % (11.8-14.3)
[2023-11-17 10:56] LABS: Chloride 103 mmol/L (98-107); Potassium 3.6 mmol/L (3.5-5.1); Sodium 135 mmol/L (136-145)
[2023-11-17 10:57] LABS: Anion Gap 2 (5-15); Calcium 8.1 mg/dL (8.7-10.4); Carbon Dioxide 30 mmol/L (20-30)
[2023-11-17 11:02] LABS: BUN/Creatinine Ratio 8.2 (10.0-20.0); Blood Urea Nitrogen 6 mg/dL (9-23); Glucose 132 mg/dL (74-106)
[2023-11-17 11:13] LABS: INR 1.37 (0.9-1.15); Partial Thromboplastin Time 29.6 SEC (24.5-34.5); Prothrombin Time 14.2 sec (9.3-11.8)
[2023-11-18 01:00] VITALS: BP 104/63; PULSE 96; RESP 18; TEMP 96.4; O2SAT 97
[2023-11-18 05:00] VITALS: BP 118/66; PULSE 91; RESP 18; TEMP 97.3; O2SAT 94
[2023-11-18 08:42] VITALS: BP 108/57; PULSE 96; RESP 18; TEMP 98.4; O2SAT 97
[2023-11-18] MEDS ORDERED: HYDR2TAB58 PO (10:40)
[2023-11-18 11:16] VITALS: TEMP 36.9
[2023-11-18 12:40] LABS: Body Fluid Polymorphonuclear 5 % (0-25); Body Fluid Red Blood Cells 635 CUMM (0-2000); Body Fluid White Blood Cells 118 CUMM (0-200)
[2023-11-18 16:45] VITALS: BP 105/56; PULSE 78; RESP 17; TEMP 98.4; O2SAT 96
[2023-11-19 13:07] LABS: Protein, Body Fluid 3.2 g/dL (.)
== END 2023-11-18 17:50 | disposition home or self-care (01) | DRG 280 ==
LOC: ER 17:57 → TELE-WESTW 22:07 → TELE 22:07 → TELE-WESTW 11-16 03:08
PROVIDERS: ADMIT Nurse Practitioner Family; ATTEND Family Medicine
PROC: 0W9G3ZZ Drainage of Peritoneal Cavity, Percutaneous Approach (ICD-10-PCS; principal; 2023-11-18)
DX: K70.31 Alcoholic cirrhosis of liver with ascites (principal); K85.90 Acute pancreatitis without necrosis or infection, unspecified; E43 Unspecified severe protein-calorie malnutrition; K80.20 Calculus of gallbladder without cholecystitis without obstruction; K42.0 Umbilical hernia with obstruction, without gangrene; B19.20 Unspecified viral hepatitis C without hepatic coma; E87.6 Hypokalemia; Z88.6 Allergy status to analgesic agent; Z91.199 Patient's noncompliance with other medical treatment and regimen due to unspecified reason; Z68.22 Body mass index [BMI] 22.0-22.9, adult
CPT/HCPCS: 36415; 49083; 74176; 76705; 76942; 80048; 80053; 81001; 82140; 83605; 83690; 83986; 85007; 85025; 85027; 85610; 85730; 87205; 89051; G0378; J2405; J3490; P9047

== ENCOUNTER 2023-12-02 08:09 | Inpatient (IN) | payer MEDICAID ==
[~2023-12-02] VITALS: Ht 177.8 cm; Wt 58.4 kg
[~2023-12-02 08:09] MED LIST changes: +DOCU-94 PO; +FURO1TAB31 PO; +HYDR2TAB58 PO; +SPIR50TA2 PO
[2023-12-02 09:00] VITALS: PULSE 76; RESP 14; O2SAT 98
[2023-12-02] MEDS: MORPHINE SULFATE 4 MG/ML SYR/VIAL IV ONE ×2 (10:03→13:13)
[2023-12-02 10:06] LABS: Basophils # (auto) 0 10 ^3/uL (0-0.2); Eosinophils # (auto) 0 10 ^3/uL (0-0.8); Lymphocytes # (auto) 0.9 10 ^3/uL (0.4-5.4); Monocytes # (auto) 0.7 10 ^3/uL (0-1.3); Platelet Count (auto) 129 10^3/uL (140-450)
[2023-12-02] MEDS: FUROSEMIDE 40 MG/4 ML VIAL IV ONE (10:06)
[2023-12-02] MEDS: SPIRONOLACTONE 25 MG TAB PO ONE (10:06)
[2023-12-02 10:08] LABS: Basophils % (auto) 0.6 % (0.0-2.0); Eosinophils % (auto) 0.4 % (0.0-7.0); Hematocrit 37.6 % (36.0-46.0); Lymphocytes % (auto) 15.6 % (10.0-50.0); Mean Corpuscular Hemoglobin 34.7 pg (28.0-32.0); Mean Corpuscular Hgb Conc. 34.6 g/dL (32.0-36.0); Mean Corpuscular Volume 100.5 fL (80.0-100.0); Monocytes % (auto) 12.3 % (0.0-12.0); Neutrophils % (auto) 71.1 % (37.0-80.0); Nucleated Red Blood Cells % 0.2 %; Red Blood Cells 3.75 10^6/uL (4.0-5.20); Red Cell Distribution Width 13.9 % (11.8-14.3); White Blood Cell 5.6 10^3/uL (4.4-10.8)
[2023-12-02 10:16] LABS: Alanine Aminotransferase 16 U/L (7-40); Albumin 2.4 g/dL (3.2-4.8); Alkaline Phosphatase 115 U/L (46-116); Anion Gap 3 (5-15); Aspartate Aminotransferase 47 U/L (13-40); Calcium 8.3 mg/dL (8.7-10.4); Carbon Dioxide 26 mmol/L (20-30); Chloride 104 mmol/L (98-107); Glucose 99 mg/dL (74-106); Potassium 3.3 mmol/L (3.5-5.1); Sodium 133 mmol/L (136-145)
[2023-12-02 10:17] LABS: Bilirubin, Total 3.5 mg/dL (0.2-1.0); Total Protein 7.7 g/dL (5.7-8.2)
[2023-12-02 10:19] LABS: INR 1.43 (0.9-1.15); Prothrombin Time 14.8 sec (9.3-11.8)
[2023-12-02 10:23] LABS: BUN/Creatinine Ratio 7.4 (10.0-20.0); Blood Urea Nitrogen < 5 mg/dL (9-23)
[2023-12-02] MEDS: ONDANSETRON HCL 4 MG/2 ML VIAL IV ONE ×3 (10:33→19:49)
[2023-12-02 10:39] LABS: Macrocytosis Slight; Platelet Estimate Decreased
[2023-12-02 13:13] LABS: Urine Bacteria FEW /hpf (None Seen); Urine Blood Negative /uL (Negative); Urine Clarity Turbid (Clear); Urine Color Light-Orange (Yellow); Urine Mucus FEW (None Seen); Urine Protein, UAD Negative (Negative); Urine Specific Gravity 1.012 (1.001-1.035); Urine Urobilinogen 2 mg/dL (Negative); Urine WBC 3 /hpf (0 - 5)
[2023-12-02] MEDS: ALBUMIN 5% 250 ML IV ONE ×2 (13:49→14:33)
[2023-12-02 19:30] VITALS: PULSE 76; RESP 13; O2SAT 98
[2023-12-02] MEDS: MORPHINE SULFATE INJ 2 MG/ml SYRG IV ONE (19:49)
[2023-12-03] VITALS (8 sets, daily range): BP systolic 107–138; BP diastolic 61–85; PULSE 79–99; RESP 14–18; TEMP 97.5–98.6; O2SAT 90–99
[2023-12-03] MEDS ORDERED: MORPHINE SULFATE INJ 2 MG/ml SYRG IM ONE (02:10)
[2023-12-03] MEDS: MORPHINE SULFATE INJ 2 MG/ml SYRG IV ONE (02:22)
[2023-12-03] MEDS: BUPIVACAINE 0.5% MPF INJ 30ML SDV IJ ONE (09:08)
[2023-12-03] MEDS ORDERED: MIDAZOLAM HCL 2MG/2ML 2ml VIAL (1mg/ml) ONE (09:27)
[2023-12-03] MEDS ORDERED: HYDROmorphone HCL 2 MG/ML VL/or syr ONE (09:27)
[2023-12-03] MEDS ORDERED: fentaNYL CITRATE 100 MCG/2 ML VL ONE (09:27)
[2023-12-03] MEDS ORDERED: PHENYLEPHRINE HCL 10 MG/ML VL ONE (09:28)
[2023-12-03] MEDS ORDERED: LIDOCAINE HCL 100 MG/5ML (2%) SYRG INJ IV ONE (09:28)
[2023-12-03] MEDS ORDERED: ePHEDrine SULFATE 50 MG/ML AMP ONE (09:28)
[2023-12-03] MEDS ORDERED: GLYCOPYRROLATE 0.2 MG/ML 1ML VIAL ONE (09:28)
[2023-12-03] MEDS ORDERED: ONDANSETRON HCL 4 MG/2 ML VIAL ONE (09:28)
[2023-12-03] MEDS ORDERED: PROPOFOL 10 MG/ML 20 ML IV ONE (09:28)
[2023-12-03] MEDS ORDERED: DexAMETHasone SOD PHOS 10MG/1ML VIAL INJ ONE (09:28)
[2023-12-03] MEDS ORDERED: ROCURONIUM 10MG/ML 10ML VIAL IV ONE (09:28)
[2023-12-03] MEDS ORDERED: KETAMINE 50mg/ML 1ml syringe ONE (09:34)
[2023-12-03] MEDS ORDERED: ONDANSETRON HCL 4 MG/2 ML VIAL IV PRN (10:15)
[2023-12-03] MEDS: ceFAZolin 2 GM/D5W50ml 50 ML IV ONE (10:27)
[2023-12-03] MEDS: SODIUM CHLORIDE 0.9% 1,000 ML IV ONE (10:30)
[2023-12-03] MEDS ORDERED: SUGAMMADEX 200mg/2ml Vial (100MG/ML) IV ONE (11:20)
[2023-12-03] MEDS ORDERED: ceFAZolin 1GM VL ONE (11:28)
[2023-12-03] MEDS ORDERED: HYDROmorphone HCL 2 MG/ML VL/or syr IV PRN (12:00)
[2023-12-03] MEDS: ONDANSETRON HCL 4 MG/2 ML VIAL IV ONE (12:00)
[2023-12-03] MEDS: POTASSIUM CHL 20MEQ/100ML 100 ML IV ONE (21:06)
[2023-12-03] MEDS: MORPHINE SULFATE 4 MG/ML SYR/VIAL IV PRN (23:19)
[2023-12-04] VITALS (8 sets, daily range): BP systolic 100–133; BP diastolic 37–70; PULSE 65–94; RESP 14–20; TEMP 97.4–98.5; O2SAT 93–99
[2023-12-04 11:20] LABS: Basophils # (auto) 0 10 ^3/uL (0-0.2); Basophils % (auto) 0.2 % (0.0-2.0); Eosinophils # (auto) 0 10 ^3/uL (0-0.8); Monocytes # (auto) 1.2 10 ^3/uL (0-1.3); Neutrophils # (auto) 4.8 10 ^3/uL (1.6-8.6); Nucleated Red Blood Cells % 0.3 %; Red Cell Distribution Width 13.5 % (11.8-14.3); White Blood Cell 7.4 10^3/uL (4.4-10.8)
[2023-12-04 11:22] LABS: Hematocrit 32.4 % (36.0-46.0); Hemoglobin 11.3 g/dL (12.2-16.2); Lymphocytes # (auto) 1.4 10 ^3/uL (0.4-5.4); Lymphocytes % (auto) 18.7 % (10.0-50.0); Mean Corpuscular Hemoglobin 34.6 pg (28.0-32.0); Mean Corpuscular Hgb Conc. 34.9 g/dL (32.0-36.0); Mean Corpuscular Volume 99.1 fL (80.0-100.0); Monocytes % (auto) 16.7 % (0.0-12.0); Neutrophils % (auto) 64.4 % (37.0-80.0); Platelet Count (auto) 127 10^3/uL (140-450); Red Blood Cells 3.27 10^6/uL (4.0-5.20)
[2023-12-04 11:24] LABS: Alanine Aminotransferase 10 U/L (7-40); Alkaline Phosphatase 76 U/L (46-116); Anion Gap 3 (5-15); BUN/Creatinine Ratio 12.7 (10.0-20.0); Blood Urea Nitrogen 9 mg/dL (9-23); Calcium 8.2 mg/dL (8.7-10.4); Carbon Dioxide 28 mmol/L (20-30); Chloride 107 mmol/L (98-107); Glucose 74 mg/dL (74-106); Potassium 3.7 mmol/L (3.5-5.1); Sodium 138 mmol/L (136-145)
[2023-12-04 11:26] LABS: Albumin 2.4 g/dL (3.2-4.8); Aspartate Aminotransferase 31 U/L (13-40); Bilirubin, Total 2.1 mg/dL (0.2-1.0); Total Protein 6.5 g/dL (5.7-8.2)
[2023-12-04 11:38] LABS: INR 1.5 (0.9-1.15); Prothrombin Time 15.4 sec (9.3-11.8)
[2023-12-04] MEDS: FAMOTIDINE (10MG/ML) 2ML VL IV ONE (18:16)
[2023-12-05] VITALS (8 sets, daily range): BP systolic 98–107; BP diastolic 53–79; PULSE 63–78; RESP 15–19; TEMP 97.1–98.6; O2SAT 95–100
[2023-12-05 07:09] LABS: Alkaline Phosphatase 73 U/L (46-116); Anion Gap 2 (5-15); Aspartate Aminotransferase 26 U/L (13-40); BUN/Creatinine Ratio 12.3 (10.0-20.0); Blood Urea Nitrogen 9 mg/dL (9-23); Calcium 7.6 mg/dL (8.7-10.4); Carbon Dioxide 28 mmol/L (20-30); Chloride 107 mmol/L (98-107); Glucose 83 mg/dL (74-106); Magnesium 1.6 mg/dL (1.6-2.6); Potassium 3.7 mmol/L (3.5-5.1); Sodium 137 mmol/L (136-145)
[2023-12-05 07:10] LABS: Bilirubin, Total 1.2 mg/dL (0.2-1.0); Total Protein 5.7 g/dL (5.7-8.2)
[2023-12-05 07:11] LABS: Alanine Aminotransferase < 9 U/L (7-40)
[2023-12-05 07:41] LABS: Basophils # (auto) 0 10 ^3/uL (0-0.2); Eosinophils # (auto) 0.1 10 ^3/uL (0-0.8)
[2023-12-05 07:42] LABS: Basophils % (auto) 0.4 % (0.0-2.0); Eosinophils % (auto) 1.4 % (0.0-7.0); Hematocrit 29.9 % (36.0-46.0); Hemoglobin 10.3 g/dL (12.2-16.2); Lymphocytes # (auto) 2.7 10 ^3/uL (0.4-5.4); Lymphocytes % (auto) 44.2 % (10.0-50.0); Mean Corpuscular Hemoglobin 34.3 pg (28.0-32.0); Mean Corpuscular Hgb Conc. 34.4 g/dL (32.0-36.0); Mean Corpuscular Volume 99.6 fL (80.0-100.0); Neutrophils # (auto) 2.3 10 ^3/uL (1.6-8.6); Nucleated Red Blood Cells % 0.3 %; Platelet Count (auto) 115 10^3/uL (140-450); Red Blood Cells 3.01 10^6/uL (4.0-5.20); Red Cell Distribution Width 13.5 % (11.8-14.3); White Blood Cell 6.2 10^3/uL (4.4-10.8)
[2023-12-05] MEDS: FUROSEMIDE 20 MG TAB PO SCH (10:00)
[2023-12-05] MEDS: FAMOTIDINE (10MG/ML) 2ML VL IV SCH (10:00)
[2023-12-05] MEDS: SPIRONOLACTONE 25 MG TAB PO SCH (10:32)
[2023-12-05] MEDS ORDERED: HYDROmorphone HCL 2 MG/ML VL/or syr IV PRN (10:45)
[2023-12-05] MEDS: DOCUSATE SOD 100 MG CAP PO ONE (21:19)
[2023-12-06] VITALS (7 sets, daily range): BP systolic 95–139; BP diastolic 51–85; PULSE 71–87; RESP 14–19; TEMP 97.8–98.8; O2SAT 94–100
[2023-12-06] MEDS: DOCUSATE SOD 100 MG CAP PO PRN (10:40)
[2023-12-06] MEDS: MORPHINE SULFATE INJ 2 MG/ml SYRG IV PRN (20:22)
[2023-12-07] VITALS (8 sets, daily range): BP systolic 101–120; BP diastolic 53–72; PULSE 74–99; RESP 16–20; TEMP 97.9–98.5; O2SAT 92–100
[2023-12-08] VITALS (8 sets, daily range): BP systolic 95–130; BP diastolic 51–72; PULSE 51–93; RESP 16–22; TEMP 97.4–98.4; O2SAT 97–100
[2023-12-08 14:54] LABS: Body Fluid White Blood Cells 118 CUMM (0-200)
[2023-12-08 14:55] LABS: Body Fluid Polymorphonuclear 5 % (0-25); Body Fluid Red Blood Cells 635 CUMM (0-2000)
[2023-12-09 00:20] VITALS: BP 96/54; PULSE 71; RESP 18; O2SAT 99
[2023-12-09 05:00] VITALS: BP 107/64; PULSE 66; RESP 18; O2SAT 98
[2023-12-09 08:00] VITALS: PULSE 73; RESP 18; O2SAT 100
[2023-12-09 09:15] VITALS: BP 110/58; PULSE 73; RESP 18; TEMP 97.8; O2SAT 100
[2023-12-09 11:07] LABS: Protein, Body Fluid 2.3 g/dL (.)
[2023-12-09] MEDS ORDERED: HYDR-4902 PO (11:53)
[2023-12-09 12:20] VITALS: BP 110/58; PULSE 73; RESP 18; TEMP 97.8; O2SAT 100
[2023-12-09 13:27] VITALS: BP 101/65; PULSE 88; RESP 18; TEMP 97.9; O2SAT 99
== END 2023-12-09 12:50 | disposition home or self-care (01) | DRG 227 ==
LOC: ER 08:09 → OVERFLOW 12-03 10:28 → WEST WING 12-03 15:02
PROVIDERS: ADMIT Registered Nurse General Practice; ATTEND Internal Medicine Geriatric Medicine
PROC: 0WQF0ZZ Repair Abdominal Wall, Open Approach (ICD-10-PCS; principal; 2023-12-03 10:40)
PROC: 0W9G3ZZ Drainage of Peritoneal Cavity, Percutaneous Approach (ICD-10-PCS; 2023-12-08)
DX: K43.6 Other and unspecified ventral hernia with obstruction, without gangrene (principal); E46 Unspecified protein-calorie malnutrition; K70.31 Alcoholic cirrhosis of liver with ascites; D63.8 Anemia in other chronic diseases classified elsewhere; K80.20 Calculus of gallbladder without cholecystitis without obstruction; J98.11 Atelectasis; B19.20 Unspecified viral hepatitis C without hepatic coma; E87.6 Hypokalemia; Z88.6 Allergy status to analgesic agent; Z68.1 Body mass index [BMI] 19.9 or less, adult; Z79.899 Other long term (current) drug therapy
CPT/HCPCS: 36415; 49083; 71045; 74176; 76705; 76942; 80053; 81001; 83605; 83735; 83986; 85025; 85610; 86850; 86900; 86901; 87205; 89051; 96365; 96366; 96375; 96376; G0378; J0690; J1100; J2250; J2405; J2704; J3480; J3490

== ENCOUNTER 2024-10-28 09:03 | Inpatient (IN) | payer MEDICAID ==
[~2024-10-28] VITALS: Ht 180.3 cm; Wt 70.0 kg
[~2024-10-28 09:03] MED LIST changes: +HYDR-4902 PO
--- NOTE | 2024-10-28 09:31 | ED.PDOC ---
GI ASSESSMENT HPI Comments 64 y/o F, presents to the ED for CC of abdominal pain. Patient states, she has been experiencing RLQ abdominal pain xmonths. Patient reports, to have had hernia surgery x1year ago and it has now come back; endorses increased pain. At this time patient is hostile and unwilling to give full history d/t care in the past. Patient denies fever, nausea, vomiting, or diarrhea. No other symptoms or modifying factors are present at this time. Chief Complaint: Abdominal Pain Time Seen by MD: 09:20 Reviewed Notes: Nurses Notes, Medications, Allergies Allergies: Coded Allergies: Acetaminophen (Verified Allergy, Unknown, 11/06/23) Home Meds Active Scripts Hydrocodone-Acetaminophen (Hydrocodone Bitartrate/AC 5-325 mg) 1 Tab Tab, 1 TAB PO Q6HP PRN, #20 TAB Prov:GUME VILLAGOMEZ MD 12/10/23 Hydrocodone-Acetaminophen (Hydrocodone Bitartrate/AC 5-325 mg) 1 Tab Tab, 1 TAB PO Q6HP PRN, #20 TAB Prov:GUME VILLAGOMEZ MD 12/09/23 Hydromorphone Hcl (Dilaudid) 2 Mg Tab, 1 TAB PO TID PRN, #20 TAB Prov:KELLEY BARRETT MD 11/18/23 Spironolactone (Aldactone) 25 Mg Tab, 100 MG PO DAILY for 90 Days, #360 TAB Prov:PARISH ROGERS RESIDENT 10/10/23 Furosemide (Furosemide) 40 Mg Tab, 40 MG PO DAILY for 90 Days, #90 TAB Prov:PARISH ROGERS 10/10/23 Bismuth Subsalicylate (Sm Stomach Relief) 262 Mg/15 Ml Emily, 524 MG PO Q1HP PRN for 90 Days, #10 ML Prov:PARISH ROGERS RESIDENT 10/10/23 Reported Medications Docusate Sodium (Colace) 100 Mg Cap, 100 MG PO, CAP 11/16/23 Furosemide (Lasix) 40 Mg Tab, 40 MG PO, TAB 11/16/23 Spironolactone (Aldactone) 50 Mg Tab, 50 MG PO DAILY, TAB 11/16/23 Hydroxyzine Hcl (Hydroxyzine Hcl) 25 Mg Tab, 1 TAB PO DAILY 10/22/23 Pantoprazole Sodium Sesquihydr (Protonix) 40 Mg Tab, 1 TAB PO BID 10/22/23 Ondansetron Odt 4MG Tab (ZOFRAN PO) 4 Mg Tb, 1 TAB PO PRN for NAUSEA / VOMITING 10/08/23 Information Source: Patient Mode of Arrival: Ambulatory Timing: Months Duration: Since onset Prehospital treatment: None Quality: None Vomitus: None Stool: Normal Severity: Moderate Recent: None Recent Hx of: None Pain Location: RLQ Modifying Factors: Nothing Associated sign and symptoms: Abdominal Pain Past Medical History PAST MEDICAL HISTORY: Liver Surgical History: Denies all surgeries MOLD MAKER APPRENTICE History: No Pertinent MOLD MAKER APPRENTICE History Family History Family History: Reviewed,noncontributory to illness Social History Smoker: Non-Smoker Alcohol: Denies ETOH Use Drugs: Denies Drug Use Lives In: Home Constitutional: denies: chills, diaphoresis, fatigue, fever, malaise, sweats, weakness, others EENTM: denies: blurred vision, double vision, ear bleeding, ear discharge, ear drainage, ear pain, ear ringing, eye pain, eye redness, hearing loss, mouth pain, mouth swelling, nasal discharge, nose bleeding, nose congestion, nose pain, photophobia, tearing, throat pain, throat swelling, voice changes, others Respiratory: denies: cough, hemoptysis, orthopnea, SOB at rest, shortness of breath, SOB with excertion, stridor, wheezing, others Cardiovascular: denies: chest pain, dizzy spells, diaphoresis, Dyspnea on exertion, edema, irregular heart beat, left arm pain, lightheadedness, palpitations, PND, syncope, others Gastrointestinal: reports: abdominal pain; denies: abdomen distended, blood streaked bowels, constipated, diarrhea, dysphagia, difficulty swallowing, hematemesis, melena, nausea, poor appetite, poor fluid intake, rectal bleeding, rectal pain, vomiting, others Genitourinary: denies: abnormal vagina bleeding, burning, dyspareunia, dysuria, flank pain, frequency, hematuria, incontinence, pain, , vagina discharge, urgency, others Neurological: denies: dizziness, fainting, headache, left sided numbness, left sided weakness, numbness, paresthesia, pre-existing deficit, right sided numbness, right sided weakness, seizure, speech problems, tingling, tremors, weakness, others Musculoskeletal: denies: back pain, gout, joint pain, joint swelling, muscle pa in, muscle stiffness, neck pain, others Integumetry: denies: bruises, change in color, change in hair/nails, dryness, laceration, lesions, lumps, rash, wounds, others Allergic/Immunocompromised: denies: Difficulty Healing, Frequent Infections, Hives, Itching, others Hematologic/Lymphatic: denies: anemia, blood clots, easy bleeding, easy bruising, swollen glands, others Endocrine: denies: excessive hunger, excessive sweating, excessive thirst, excessive urination, flushing, intolerance to cold, intolerance to heat, unexplained weight gain, unexplained weight loss, others Psychiatric: denies: anxiety, bipolar disorder, depression, hopeless, panic disorder, schizophrenia, sleepless, suicidal, others All Other Systems: Reviewed and Negative Physical Exam General Appearance: Moderate Distress HEENT: Normal ENT Inspection, Pharynx Normal, TMs Normal Neck: Full Range of Motion, Non-Tender, Normal, Normal Inspection Respiratory: Chest Non-Tender, Lungs Clear, No Accessory Muscle Use, No Respiratory Distress, Normal Breath Sounds Cardiovascular: No Edema, No JVD, No Murmur, No Gallop, Normal Peripheral Pulses, Regular Rate/Rhythm Breast Exam: Deferred Gastrointestinal: No Organomegaly, No Pulsatile Mass, Normal Bowel Sounds, So ft, Other (Ventral hernia) Genitalia: Deferred Pelvic: Deferred Rectal: Deferred Extremities: No calf tenderness, Normal capillary refill, Normal inspection, Normal range of motion, Non-tender, No pedal edema Musculoskeletal : Apperance: Normal Neurologic: Alert, reconciler II-XII nml as Tested, No Motor Deficits, Normal Affect, Normal Mood, No Sensory Deficits Cerebellar Function: Normal Reflexes: Normal Skin: Dry, Normal Color, Warm Peripheral Pulses: 3+ Radial (R), 3+ Radial (L) Lymphatic: No Adenopathy Was a procedure done? Was a procedure done?: No GI differential Dx Differential Diagnosis: Cholangitis, Cholecystitis, Diverticular disease, Esophagitis, Gastritis/PUD, Gastroenteritis, Inflammatory BD, Pancreatitis X-Ray, Labs, Meds, VS Vital Signs Date Time Temp Pulse Resp B/P (MAP) Pulse Ox O2 Delivery O2 Flow Rate FiO2 10/28/24 09:04 97.4 104 18 128/71 97 97.4 Lab Test 10/28/24 07:59 Range/Units White Blood Count 8.0 4.4-10.8 10^3/uL Red Blood Count 4.31 4.0-5.20 10^6/uL Hemoglobin 14.1 12.2-16.2 g/dL Hematocrit 41.0 36.0-46.0 % Mean Corpuscular Volume 94.9 80.0-100.0 fL Mean Corpuscular Hemoglobin 32.7 H 28.0-32.0 pg Mean Corpuscular Hemoglobin Concent 34.4 32.0-36.0 g/dL Red Cell Distribution Width 12.4 11.8-14.3 % Platelet Count 184 140-450 10^3/uL Mean Platelet Volume 10.0 6.9-10.8 fL Neutrophils (%) (Auto) 52.4 37.0-80.0 % Lymphocytes (%) (Auto) 32.1 10.0-50.0 % Monocytes (%) (Auto) 13.6 H 0.0-12.0 % Eosinophils (%) (Auto) 1.0 0.0-7.0 % Basophils (%) (Auto) 0.9 0.0-2.0 % Neutrophils # (Auto) 4.2 1.6-8.6 10 ^3/uL Lymphocytes # (Auto) 2.6 0.4-5.4 10 ^3/uL Monocytes # (Auto) 1.1 0-1.3 10 ^3/uL Eosinophils # (Auto) 0.1 0-0.8 10 ^3/uL Basophils # (Auto) 0.1 0-0.2 10 ^3/uL Nucleated Red Blood Cells 0.1 % Sodium Level 141 136-145 mmol/L Potassium Level 3.7 3.5-5.1 mmol/L Chloride Level 106 98-107 mmol/L Carbon Dioxide Level 27 20-31 mmol/L Anion Gap 8 5-15 Blood Urea Nitrogen 10 9-23 mg/dL Creatinine 0.95 0.550-1.02 mg/dL Glomerular Filtration Rate Calc 66 >90 mL/min BUN/Creatinine Ratio 10.5 10.0-20.0 Serum Glucose 95 74-106 mg/dL Calcium Level 9.8 8.7-10.4 mg/dL [facility] [id number] [facility] [address] Ph: [phone] DIAGNOSTIC IMAGING Diagnostic Imaging Report : [id number] Signed PATIENT: MARLEN ACCT: [id number] UNIT: [id number] : 1960 LOC: ER ROOM / BED: / AGE / SEX: 64 / F ADM STATUS: REG ER SERVICE [id number] ORDERING PHYSICIAN: RADHA WIGGINS MD PROCEDURE(s): ABPL - CT AB PEL WO CON-NO ORAL OR IV REASON: hernia ORDER NUMBER(s): [id number], ACCESSION NUMBER(s): [id number] CT CT AB PEL WO CON-NO ORAL OR IV INDICATION: hernia EXAM DATE: 10/28/2024 09:32 AM COMPARISON: US ABDOMEN LIMITED on DOS: 12/08/23, CT CT AB PEL WO CON-NO ORAL OR IV on DOS: 12/02/23, US ABDOMEN LIMITED on DOS: 11/16/23 RADIATION DOSE: CTDIvol: 6.17 mGy, DLP: 326.71 mGy*cm PROCEDURE: Helical CT images were obtained of the abdomen and pelvis without IV contrast Sagittal and coronal reconstructions are provided. ORAL CONTRAST: None. ADDITIONAL IMAGES / REFORMATS: None All CT scans at this medical facility are performed using dose modulation techniques as appropriate to a performed exam including the following: Automated exposure control was utilized; adjustment of the MA and/or KV according to patient size; and use of iterative reconstruction technique. FINDINGS: LUNG BASE: Normal. LIVER: 2.1 x 3.4 cm partially calcified lesion in the right retrohepatic space, previously described on prior CT is incompletely characterized without IV co ntrast. GALLBLADDER AND BILIARY TREE: Gallstones. No intra- or extrahepatic biliary ductal dilation. PANCREAS: Normal. SPLEEN: Normal. BOWEL: Normal. Normal appendix, but prominent in appearance. ADRENALS: Normal. KIDNEYS AND URETER: Normal. BLADDER: Normal. REPRODUCTIVE ORGANS: Normal. LYMPH NODES:No lymphadenopathy. PERITONEUM: No ascites or free air. No other fluid collection. VESSELS: Scattered atherosclerotic calcifications are noted. Gastric varices. RETROPERITONEUM: Normal. ABDOMINAL WALL: Large ventral hernia contains bowel loops. BONES: Scattered osseous degenerative changes are noted. IMPRESSION: Large ventral hernia contains bowel loops. 2.1 x 3.4 cm partially calcified lesion in the right retrohepatic space, previou sly described on prior CT is incompletely characterized without IV contrast. Cirrhotic liver. Cholelithiasis. ATED BY: GIGI GANT MD DICTATED DATE/TIME: 10/28/241005 SIGNED BY: GIGI GANT MD SIGNED DATE/TIME: 10/28/241005 CC: Patient alert. Complaining of abdominal pain. Vitals stable. On examination she does have a hernia. History of liver disease. Gallstones. Large ventral hernia without any strangulation. She did have a surgery done here for hernia. Explained to the patient. Continue monitoring. Time of 1ST Reevaluation: 09:50 Reevaluation 1ST: Unchanged Patient Education/Counseling: Diagnosis, Treatment Family Education/Counseling: No Family Present SEPSIS Sepsis Screen Date sepsis recognized/suspect: Oct 28, 2024 Time Sepsis recognized/suspect: 904 Recent Procedure: No On Antibiotic Therapy: No Respiratory Rate >20: No Heart Rate >90: Yes Temp<36 C (96.8 F) or >38.3 C: No SBP <90 or MAP <65 mmHG: No New Acute Mental Status Change: No Is the patient on CPAP, BIPAP,: No Physician Orders Urinalysis (10/28/24 09:32) Ct Ab Pel Wo Con-No Oral Or Iv (10/28/24 09:32) Vital Signs Date Time Temp Pulse Resp B/P (MAP) Pulse Ox O2 Delivery O2 Flow Rate FiO2 10/28/24 09:04 97.4 104 18 128/71 97 97.4 Laboratory Tests Test 10/28/24 07:59 White Blood Count 8.0 10^3/uL (4.4-10.8) Departure 1 Departure Time of Disposition: 11:18 Impression: Primary Impression: Ventral hernia Qualified Codes: K43.9 - Ventral hernia without obstruction or gangrene Additional Impression: Acute abdominal pain Disposition: ADMITTED INPATIENT Admit to: Med Surg Condition: Guarded Critical Care Note Critical Care Time?: No Stability Stability form required: No Heart Score Heart Score: Heart Score Response (Comments) Value History N/A 0 EKG N/A 0 Age N/A 0 Risk Factors N/A 0 Troponin N/A 0 Total 0 I personally scribed for RADHA WIGGINS MD ([email or web address]) on 10/28/24 at 09:31. Electronically submitted by Ericka Smith ([email or web address]). I personally scribed for RADHA WIGGINS MD ([email or web address]) on 10/28/24 at 10:24. Electronically submitted by Ericka Smith ([email or web address]). RADHA WIGGINS MD Oct 28, 2024 09:31
--- NOTE | 2024-10-28 10:09 | DVH ---
CT CT AB PEL WO CON-NO ORAL OR IV INDICATION: hernia EXAM DATE: 10/28/2024 09:32 AM COMPARISON: US ABDOMEN LIMITED on DOS: 12/08/23, CT CT AB PEL WO CON-NO ORAL OR IV on DOS: 12/02/23, US ABDOMEN LIMITED on DOS: 11/16/23 RADIATION DOSE: CTDIvol: 6.17 mGy, DLP: 326.71 mGy*cm PROCEDURE: Helical CT images were obtained of the abdomen and pelvis without IV contrast Sagittal and coronal reconstructions are provided. ORAL CONTRAST: None. ADDITIONAL IMAGES / REFORMATS: None All C T scans at this medical facility are performed using dose modulation techniques as appropriate to a p erformed exam including the following: Automated exposure control was utilized; adjustment of the MA and/or KV according to patient size; and use of iterative reconstruction technique. FINDINGS: LUNG BASE: Normal. LIVER: 2.1 x 3.4 cm partially calcified lesion in the right retrohepatic space, previously described on prior CT is incompletely characterized without IV contrast. GALLBLADDER AND BILIARY TREE: Gallstones. No intra- or extrahepatic biliary ductal dilation. PANCREAS: Normal. SPLEEN: Normal. BOWEL: Normal. Normal appendix, but prominent in appearance. ADRENALS: Normal. KIDNEYS AND URETER: Normal. BLADDER: Normal. REPRODUCTIVE ORGANS: Normal. LYMPH NODES:No lymphadenopathy. PERITONEUM: No ascites or free air. No other fluid collection. VESSELS: Scattered atherosclerotic calcifications are noted. Gastric varices. RETROPERITONEUM: Normal. ABDOMINAL WALL: Large ventral hernia contains bowel loops. BONES: Scattered osseous degenerative changes are noted. IMPRESSION: Large ventral hernia contains bowel loops. 2.1 x 3.4 cm partially calcified lesion in the right retrohepatic space, previously described on prio r CT is incompletely characterized without IV contrast. Cirrhotic liver. Cholelithiasis.
[2024-10-28 10:34] LABS: Hematocrit 41.0 % (36.0-46.0); Hemoglobin 14.1 g/dL (12.2-16.2); Mean Corpuscular Hemoglobin 32.7 pg (28.0-32.0); Mean Corpuscular Volume 94.9 fL (80.0-100.0); Nucleated Red Blood Cells % 0.1 %
[2024-10-28 10:47] LABS: Anion Gap 8 (5-15); Carbon Dioxide 27 mmol/L (20-31); Chloride 106 mmol/L (98-107); Potassium 3.7 mmol/L (3.5-5.1); Sodium 141 mmol/L (136-145)
[2024-10-28 10:48] LABS: Calcium 9.8 mg/dL (8.7-10.4)
[2024-10-28 10:53] LABS: BUN/Creatinine Ratio 10.5 (10.0-20.0); Blood Urea Nitrogen 10 mg/dL (9-23); Glucose 95 mg/dL (74-106)
[2024-10-28] MEDS: SODIUM CHLORIDE 0.9% 1,000 ML IV ONE (12:32)
[2024-10-28] MEDS: ONDANSETRON HCL 4 MG/2 ML VIAL IV ONE (12:34)
[2024-10-28] MEDS: MORPHINE SULFATE 4 MG/ML SYR/VIAL IV ONE (12:35)
--- NOTE | 2024-10-28 12:44 | DVHHP2 ---
History of Present Illness Reason for Visit: abd pain History of Present Illness 64-year-old female with a past medical history of cirrhosis and prior hernia repair in November 2023, as well as hernia surgery that same month, presents with worsening abdominal pain localized to the area of her prior hernia and the right side of her abdomen. She reports that following her November surgery, she was advised to rest but was unable to do so due to homelessness, requiring her to move heavy items. She subsequently noticed redeveloping hernia symptoms but has been unable to undergo repeat surgery. She presents today due to worsening pain, particularly when the area is palpated or when moving or sitting upright; she reports relief when leaning forward. She denies nausea, vomiting, or diarrhea. She reports occasional marijuana use, denies alcohol and illicit drug use. In the ED, CBC and BMP were unremarkable. CT abdomen/pelvis revealed a large ventral hernia without obstruction, cirrhotic liver, a liver lesion, and gallstones. She was given IV morphine for pain control. will admit to medicine general surgery evaluation Past Medical History See HPI above Past Surgical History See HPI above Family History Reviewed, non-contributory to the management of this case. Past Social History Patient states she smokes marijuana occasionally but denies drug or alcohol use or smoking cigarettes Review of Systems Constitutional: No: Fever, Chills, Sweats, Weakness, Malaise, Other Eyes: No: Pain, Vision change, Conjunctivae inflammation, Eyelid inflammation, Other, Redness ENT: No: Ear pain, Ear discharge, Nose pain, Nose discharge, Nose congestion, Mouth pain, Mouth swelling, Throat pain, Throat swelling, Other Respiratory: No: Cough, Dry, Shortness of breath, SOB with excertion, Wheezing, Hemoptysis, Pleuritic Pain, Sputum, Wheezing, Other Cardiovascular: No: Chest Pain, Palpitations, Orthopnea, Paroxysmal Noc. Dyspnea, Edema, Lt Headedness, Other Gastrointestinal: Abdominal Pain; No: Nausea, Vomiting, Diarrhea, Constipation, Melena, Hematochezia, Other Genitourinary: No Dysuria, No Frequency, No Incontinence, No Hematuria, No Retention, No Other Musculoskeletal: No: other, neck pain, shoulder pain, arm pain, back pain, hand pain, leg pain, foot pain Skin: No: Rash, Lesions, Jaundice, Bruising, Other Neurological: No: Weakness, Numbness, Incoordination, Change in speech, Confusion, Seizures, Other Allergies: Coded Allergies: Acetaminophen (Verified Allergy, Unknown, 11/06/23) Exam Vital Signs Vital Signs Date Time Temp Pulse Resp B/P (MAP) Pulse Ox O2 Delivery O2 Flow Rate FiO2 10/28/24 12:35 108 20 134/91 10/28/24 12:25 97 Room Air 10/28/24 12:25 98.2 98.2 General Appearance: Alert, Oriented X3, Cooperative, No acute distress HEENT: Atraumatic, PERRLA, EOMI, Mucous membr. moist/pink Respiratory: Clear to auscultation, Normal air movement Cardiovascular: Regular rate, Normal S1, Normal S2, No murmurs Abdominal: Normal bowel sounds, Other (Right side of the abdomen hernia protrusion no reduction guarding and rebound tenderness) Extremities: No clubbing, No cyanosis, No edema, Normal pulses, No tenderness/swelling Skin: No rashes, No breakdown, No significant lesion Neuro: Normal gait, Normal speech, Strength at 5/5 X4 ext, Normal tone, Sensation intact, Cranial nerves 3-12 NL Psych/Mental Status: Mental status NL, Mood NL Labs/Xrays CT scan abdomen pelvis shows large ventral hernia with bowel no evidence of obstruction or incarceration cirrhotic liver liver lesions gallstones I reviewed labs, imaging CT scan abdomen pelvis, EKG and all diagnostic studies on this patient from ED records and the medical chart Labs Test 10/28/24 07:59 Range/Units White Blood Count 8.0 4.4-10.8 10^3/uL Red Blood Count 4.31 4.0-5.20 10^6/uL Hemoglobin 14.1 12.2-16.2 g/dL Hematocrit 41.0 36.0-46.0 % Mean Corpuscular Volume 94.9 80.0-100.0 fL Mean Corpuscular Hemoglobin 32.7 H 28.0-32.0 pg Mean Corpuscular Hemoglobin Concent 34.4 32.0-36.0 g/dL Red Cell Distribution Width 12.4 11.8-14.3 % Platelet Count 184 140-450 10^3/uL Mean Platelet Volume 10.0 6.9-10.8 fL Neutrophils (%) (Auto) 52.4 37.0-80.0 % Lymphocytes (%) (Auto) 32.1 10.0-50.0 % Monocytes (%) (Auto) 13.6 H 0.0-12.0 % Eosinophils (%) (Auto) 1.0 0.0-7.0 % Basophils (%) (Auto) 0.9 0.0-2.0 % Neutrophils # (Auto) 4.2 1.6-8.6 10 ^3/uL Lymphocytes # (Auto) 2.6 0.4-5.4 10 ^3/uL Monocytes # (Auto) 1.1 0-1.3 10 ^3/uL Eosinophils # (Auto) 0.1 0-0.8 10 ^3/uL Basophils # (Auto) 0.1 0-0.2 10 ^3/uL Nucleated Red Blood Cells 0.1 % Sodium Level 141 136-145 mmol/L Potassium Level 3.7 3.5-5.1 mmol/L Chloride Level 106 98-107 mmol/L Carbon Dioxide Level 27 20-31 mmol/L Anion Gap 8 5-15 Blood Urea Nitrogen 10 9-23 mg/dL Creatinine 0.95 0.550-1.02 mg/dL Glomerular Filtration Rate Calc 66 >90 mL/min BUN/Creatinine Ratio 10.5 10.0-20.0 Serum Glucose 95 74-106 mg/dL Calcium Level 9.8 8.7-10.4 mg/dL SEPSIS Sepsis Screen Date sepsis recognized/suspect: Oct 28, 2024 Time Sepsis recognized/suspect: 904 Recent Procedure: No On Antibiotic Therapy: No Respiratory Rate >20: No Heart Rate >90: Yes Temp<36 C (96.8 F) or >38.3 C: No SBP <90 or MAP <65 mmHG: No New Acute Mental Status Change: No Is the patient on CPAP, BIPAP,: No Physician Orders Urinalysis (10/28/24 09:32) Ct Ab Pel Wo Con-No Oral Or Iv (10/28/24 09:32) Saline Lock (10/28/24 12:09) Vital Signs Date Time Temp Pulse Resp B/P (MAP) Pulse Ox O2 Delivery O2 Flow Rate FiO2 10/28/24 12:35 108 20 134/91 10/28/24 12:25 100 20 97 Room Air 10/28/24 12:25 98.2 100 20 134/91 (105) 97 98.2 10/28/24 09:04 97.4 104 18 128/71 97 97.4 Laboratory Tests Test 10/28/24 07:59 White Blood Count 8.0 10^3/uL (4.4-10.8) Medications Medications Dose Ordered Sig/Joel Route Start Time Stop Time Status Last Admin Dose Admin Morphine Sulfate 4 mg ONCE ONCE IV 10/28/24 11:30 10/28/24 11:31 DC 10/28/24 12:35 4 MG Ondansetron HCl 4 mg ONCE ONCE IV 10/28/24 11:30 10/28/24 11:31 DC 10/28/24 12:34 4 MG Sodium Chloride 1,000 ml @ 1,000 mls/hr Q1H ONCE IV 10/28/24 11:30 10/28/24 12:29 DC 10/28/24 12:32 1,000 MLS/HR Assessment/Plan Assessment/Plan 64-year-old female with Large recurrent ventral hernia with abdominal pain in the setting of known cirrhosis and liver lesion, requiring surgical evaluation and pain management. acute Large Recurrent Ventral Hernia symptomatic found on ct scan General surgery consult for evaluation of possible repair Pain control with IV morphine PRN; transition to oral analgesics as tolerated NPO pending surgical evaluation ordered ivf acute Cirrhosis compensated Monitor LFTs and INR Avoid hepatotoxic medications Maintain low-sodium diet once diet resumed Outpatient hepatology follow-up after discharge Liver Lesion incidental finding outpt follow up for workup Alpha-fetoprotein (AFP) level Cholelithiasis asymptomatic No acute intervention needed at this time Monitor for signs of cholecystitis (fever, RUQ pain, leukocytosis) CHRONIC PROBLEM LIST Cirrhosis Marijuana use FEN / PPx Fluids: IV fluids while NPO Electrolytes: Monitor daily, replace as needed Nutrition: NPO pending surgical consult DVT Prophylaxis: scd for now GI Prophylaxis: Pantoprazole 40 mg IV daily Disposition: Admit for pain control, surgical evaluation, and further workup of liver lesion in the setting of recurrent ventral hernia and cirrhosis. Plan discussed with: Patient Date of Service: Oct 28, 2024 Billing Provider: LORENE SHOEMAKER DNP Common Visit Codes: [id number] INP/OBS CARE (HIGH) LORENE SHOEMAKER DNP Oct 28, 2024 12:44
[2024-10-28] MEDS ORDERED: DOCUSATE SOD 100 MG CAP PO PRN (12:45)
[2024-10-28] MEDS ORDERED: NITROGLYCERIN 0.4 MG SL TAB SL PRN (12:45)
[2024-10-28] MEDS: SODIUM CHLORIDE 0.9% 1,000 ML IV SCH (12:45)
[2024-10-28 14:38] VITALS: PULSE 72; RESP 18; O2SAT 95
[2024-10-28 14:50] LABS: Urine Protein, UAD Negative (Negative)
--- NOTE | 2024-10-28 15:27 | DVHINCON2 ---
Date of service: Oct 28, 2024 Family History: Patient reports no known family medical history. Allergies: Coded Allergies: Acetaminophen (Verified Allergy, Unknown, 11/06/23) Home Meds Active Scripts Hydrocodone-Acetaminophen (Hydrocodone Bitartrate/AC 5-325 mg) 1 Tab Tab, 1 TAB PO Q6HP PRN, #20 TAB Prov:GUME VILLAGOMEZ MD 12/10/23 Hydrocodone-Acetaminophen (Hydrocodone Bitartrate/AC 5-325 mg) 1 Tab Tab, 1 TAB PO Q6HP PRN, #20 TAB Prov:GUME VILLAGOMEZ MD 12/09/23 Hydromorphone Hcl (Dilaudid) 2 Mg Tab, 1 TAB PO TID PRN, #20 TAB Prov:KELLEY BARRETT MD 11/18/23 Spironolactone (Aldactone) 25 Mg Tab, 100 MG PO DAILY for 90 Days, #360 TAB Prov:PARISH ROGERS 10/10/23 Furosemide (Furosemide) 40 Mg Tab, 40 MG PO DAILY for 90 Days, #90 TAB Prov:PARISH ROGERS RESIDENT 10/10/23 Bismuth Subsalicylate (Sm Stomach Relief) 262 Mg/15 Ml Emily, 524 MG PO Q1HP PRN for 90 Days, #10 ML Prov:PARISH ROGERS RESIDENT 10/10/23 Reported Medications Docusate Sodium (Colace) 100 Mg Cap, 100 MG PO, CAP 11/16/23 Furosemide (Lasix) 40 Mg Tab, 40 MG PO, TAB 11/16/23 Spironolactone (Aldactone) 50 Mg Tab, 50 MG PO DAILY, TAB 11/16/23 Hydroxyzine Hcl (Hydroxyzine Hcl) 25 Mg Tab, 1 TAB PO DAILY 10/22/23 Pantoprazole Sodium Sesquihydr (Protonix) 40 Mg Tab, 1 TAB PO BID 10/22/23 Ondansetron Odt 4MG Tab (ZOFRAN PO) 4 Mg Tb, 1 TAB PO PRN for NAUSEA / VOMITING 10/08/23 Current Medications Current Medications Medications (Trade) Dose Ordered Sig/Joel Route PRN Reason Start Time Stop Time Status Last Admin Sodium Chloride 1,000 ml @ 100 mls/hr Q10H IV 10/28/24 12:45 Temazepam (Restoril) 15 mg QHSP PRN PO FOR INSOMNIA 10/28/24 12:45 Ondansetron HCl (Zofran) 4 mg Q4HP PRN IV NAUSEA / VOMITING 10/28/24 12:45 Docusate Sodium (Colace Capsule) 100 mg BIDPRN PRN PO FOR CONSTIPATION 10/28/24 12:45 Morphine Sulfate 2 mg Q4HPRN PRN IV SEVERE PAIN (7-10 PAIN SCALE) 10/28/24 12:45 Nitroglycerin (Ntrostat Sublingual) 0.4 mg Q5MINP PRN SL FOR CHEST PAIN 10/28/24 12:45 Vital Signs Vital Signs Date Time Temp Pulse Resp B/P (MAP) Pulse Ox O2 Delivery O2 Flow Rate FiO2 10/28/24 14:38 72 18 95 Room Air* 0 21 10/28/24 14:38 97.6 116/70 (85) 97.6 Labs/Diagnostic Data Labs Test 10/28/24 12:33 10/28/24 07:59 Range/Units Urine Color Light-yellow Yellow Urine Clarity Clear Clear Urine pH 6.5 5.0-9.0 Urine Specific [place] 1.010 1.001-1.035 Urine Protein Negative Negative Urine Ketones Negative Negative Urine Blood Negative Negative /uL Urine Nitrite Negative Negative Urine Bilirubin Negative Negative Urine Urobilinogen Normal Negative mg/dL Urine Leukocyte Esterase Negative Negative /uL Urine RBC 1 0 - 4 /hpf Urine Microscopic WBC < 1 0-5 /HPF Urine Squamous Epithelial Cells Few <5 /hpf Urine Bacteria None seen None Seen /hpf Urine Mucus Few None Seen Urine Glucose Normal Normal mg/dL White Blood Count 8.0 4.4-10.8 10^3/uL Red Blood Count 4.31 4.0-5.20 10^6/uL Hemoglobin 14.1 12.2-16.2 g/dL Hematocrit 41.0 36.0-46.0 % Mean Corpuscular Volume 94.9 80.0-100.0 fL Mean Corpuscular Hemoglobin 32.7 H 28.0-32.0 pg Mean Corpuscular Hemoglobin Concent 34.4 32.0-36.0 g/dL Red Cell Distribution Width 12.4 11.8-14.3 % Platelet Count 184 140-450 10^3/uL Mean Platelet Volume 10.0 6.9-10.8 fL Neutrophils (%) (Auto) 52.4 37.0-80.0 % Lymphocytes (%) (Auto) 32.1 10.0-50.0 % Monocytes (%) (Auto) 13.6 H 0.0-12.0 % Eosinophils (%) (Auto) 1.0 0.0-7.0 % Basophils (%) (Auto) 0.9 0.0-2.0 % Neutrophils # (Auto) 4.2 1.6-8.6 10 ^3/uL Lymphocytes # (Auto) 2.6 0.4-5.4 10 ^3/uL Monocytes # (Auto) 1.1 0-1.3 10 ^3/uL Eosinophils # (Auto) 0.1 0-0.8 10 ^3/uL Basophils # (Auto) 0.1 0-0.2 10 ^3/uL Nucleated Red Blood Cells 0.1 % Sodium Level 141 136-145 mmol/L Potassium Level 3.7 3.5-5.1 mmol/L Chloride Level 106 98-107 mmol/L Carbon Dioxide Level 27 20-31 mmol/L Anion Gap 8 5-15 Blood Urea Nitrogen 10 9-23 mg/dL Creatinine 0.95 0.550-1.02 mg/dL Glomerular Filtration Rate Calc 66 >90 mL/min BUN/Creatinine Ratio 10.5 10.0-20.0 Serum Glucose 95 74-106 mg/dL Calcium Level 9.8 8.7-10.4 mg/dL Assessment [id number] C/O ABD PAIN S/P VENTRAL HERNIA REPAIR 1 YEAR AGO HX OF CIRRHOSIS AFEBRILE VSS ABD SOFT INCARCERATED VENTRAL RECURRENT HERNIA MANUAL REDUCTION ATTEMPTED AT BEDSIDE, HERNIA REDUCED NURSE AT BEDSIDE PT FEELS BETTER CONTINUE CLOSE OBSERVATION CONSIDER EMERGENT SURGERY BASED ON ONGOING EVAL HIGH RISK FOR SURGERY Plan discussed with: Patient ELHAM FELIX MD Oct 28, 2024 15:27
--- NOTE | 2024-10-28 16:18 | DVHINCON2 ---
DATE OF CONSULTATION: 10/28/2024 HISTORY OF PRESENT ILLNESS: This patient is 64 years old coming in with abdominal pain, swelling, some nausea, no vomiting. No constipation or diarrhea. She had a ventral hernia repair done about 1 year ago and she did something intensive today and seemingly there is swelling and she thinks the hernia came back in the upper abdomen. She has abdominal pain. No fever or chills. No hematemesis, melena. No bleeding per rectum. PAST MEDICAL HISTORY: No hypertension or diabetes. She has a history of cirrhosis on exam. PAST SURGICAL HISTORY: As mentioned above. PHYSICAL EXAMINATION: VITAL SIGNS: Afebrile, stable signs. HEENT: No evidence of pallor, cyanosis, or jaundice. NECK: Supple, nontender with no thyromegaly or lymphadenopathy. CHEST AND LUNGS: Clear. HEART: Within normal limits. ABDOMEN: Soft. CLINICAL IMPRESSION: She has an incarcerated ventral hernia post-incisional, recurrent. PLAN: The plan would be to attempt manual reduction and if successful, consider elective or emergent ventral hernia surgery based upon ongoing evaluation. MD ERNESTO Basurto/ANÍBAL TID: [id number] RECEIPT: [id number] cc: LORENE SHOEMAKER
[2024-10-29] VITALS (7 sets, daily range): BP systolic 112–148; BP diastolic 61–83; PULSE 18–72; RESP 12–97; TEMP 96.2–97.8; O2SAT 96–100
[2024-10-29 06:41] LABS: Hematocrit 37.0 % (36.0-46.0); Hemoglobin 12.9 g/dL (12.2-16.2); Mean Corpuscular Hemoglobin 32.9 pg (28.0-32.0); Mean Corpuscular Volume 94.8 fL (80.0-100.0); Nucleated Red Blood Cells % 0.1 %
[2024-10-29 06:54] LABS: Alanine Aminotransferase 12 U/L (7-40); Albumin 4.1 g/dL (3.2-4.8); Alkaline Phosphatase 68 U/L (46-116); Anion Gap 7 (5-15); BUN/Creatinine Ratio 9.8 (10.0-20.0); Calcium 9.4 mg/dL (8.7-10.4); Carbon Dioxide 25 mmol/L (20-31); Potassium 3.6 mmol/L (3.5-5.1); Sodium 140 mmol/L (136-145); Total Protein 7.6 g/dL (5.7-8.2)
[2024-10-29 06:55] LABS: Bilirubin, Total 1.0 mg/dL (0.2-1.0)
[2024-10-29 06:58] LABS: Blood Urea Nitrogen 8 mg/dL (9-23); Chloride 108 mmol/L (98-107); Glucose 69 mg/dL (74-106)
[2024-10-29] MEDS: ceFAZolin 2 GM/D5W50ml 50 ML IV ONE (11:15)
[2024-10-29] MEDS: GABAPENTIN 300 MG CAP PO ONE (11:30)
[2024-10-29] MEDS: CELECOXIB 100 MG CAP PO ONE (11:30)
[2024-10-29] MEDS ORDERED: LIDOCAINE HCL 2% TOP JELLY 5ML TOP ONE (11:47)
[2024-10-29] MEDS ORDERED: KETOROLAC TROMETH 30 MG/ML 1ML VIAL ONE (11:50)
[2024-10-29] MEDS ORDERED: ROCURONIUM 10MG/ML 10ML VIAL IV ONE (11:50)
[2024-10-29] MEDS ORDERED: LIDOCAINE 2% (LOCAL ANESTH.) PF 5ml SDV ONE ×2 (11:50→11:53)
[2024-10-29] MEDS ORDERED: PROPOFOL 10 MG/ML 20 ML IV ONE (11:50)
[2024-10-29] MEDS ORDERED: GLYCOPYRROLATE 0.2 MG/ML 1ML VIAL ONE (11:50)
[2024-10-29] MEDS ORDERED: SUGAMMADEX 200mg/2ml Vial (100MG/ML) IV ONE (11:50)
[2024-10-29] MEDS ORDERED: ONDANSETRON HCL 4 MG/2 ML VIAL ONE (11:50)
[2024-10-29] MEDS ORDERED: fentaNYL CITRATE 100 MCG/2 ML VL ONE (11:51)
[2024-10-29] MEDS ORDERED: KETAMINE 50mg/ML 1ml syringe ONE (11:51)
[2024-10-29] MEDS: CELECOXIB 100 MG CAP ONE (11:55)
[2024-10-29] MEDS: GABAPENTIN 300 MG CAP ONE (11:55)
[2024-10-29] MEDS: ACETAMINOPHEN IV 100 ML IV ONE (11:55)
[2024-10-29] MEDS: ACETAMINOPHEN IV 1000 MG/100ML (10MG/ML) IV ONE (12:25)
[2024-10-29] MEDS ORDERED: PHENYLEPHRINE HCL 10 MG/ML VL ONE (12:33)
[2024-10-29] MEDS ORDERED: SODIUM CHLORIDE LOCK 10 ML ONE (12:33)
[2024-10-29] MEDS: ceFAZolin 1GM VL ONE (12:36)
[2024-10-29] MEDS: LIDOCAINE 1% HCL (LOCAL ANESTH.) INJ 20ML MDV ONE (12:36)
[2024-10-29] MEDS ORDERED: FLUMAZENIL 0.1 MG/ML INJ 10ML MDV IV PRN (13:30)
[2024-10-29] MEDS ORDERED: ONDANSETRON HCL 4 MG/2 ML VIAL IV PRN (13:30)
[2024-10-29] MEDS ORDERED: fentaNYL CITRATE 100 MCG/2 ML VL IV PRN (13:30)
[2024-10-29] MEDS ORDERED: NALOXONE HCL 0.4 MG/ML VIAL IV PRN (13:30)
[2024-10-29] MEDS ORDERED: hydrALAZINE HCL 20 MG/ML VL IV PRN (13:30)
--- NOTE | 2024-10-29 13:34 | DVHOP2 ---
Operative Report [id number] INCARCERATED VENTRAL HERNIA 6 CMS OPEN REPAIR ABOVE WITHOUT MESH B/L MUSCLE COMPONENT SEPARATION EBL 25 CC NO DRAIN NO COMPLICATIONS STABLE TRANSFERRED TO RECOVERY ROOM ELHAM FELIX MD Oct 29, 2024 13:34
[2024-10-29] MEDS: ONDANSETRON HCL 4 MG/2 ML VIAL IV PRN (13:43)
[2024-10-29] MEDS: HYDROmorphone HCL 2 MG/ML VL/or syr IV PRN (13:46)
[2024-10-29] MEDS: HYDROmorphone HCL 2 MG/ML VL/or syr ONE (13:52)
[2024-10-29] MEDS: ONDANSETRON HCL 4 MG/2 ML VIAL IV ONE (16:00)
--- NOTE | 2024-10-29 16:46 | DVHOP ---
DATE OF SURGERY: 10/29/2024 PREOPERATIVE DIAGNOSIS: Incarcerated periumbilical ventral hernia measuring about 6 cm and this is a recurrent hernia as well. POSTOPERATIVE DIAGNOSIS: Incarcerated periumbilical ventral hernia measuring about 6 cm and this is a recurrent hernia as well. PROCEDURE: Open repair of this hernia without mesh, ____ placement of the mesh and then bilateral muscle component separation. SURGEON: Benny Guaman MD INVESTMENT ANALYST: None. ANESTHESIA: General. ESTIMATED BLOOD LOSS: 25 mL. DRAINS: No drains were used. COMPLICATIONS: No complications were encountered. DESCRIPTION OF PROCEDURE: The patient was prepped and draped in the usual sterile fashion in the supine position and a vertical midline incision was applied supraumbilically into the right umbilicus, was taken down into the deeper tissue. The umbilicus was released from the tissues and a wide hernia sac was identified that was removed. The hernial ring was identified. It was measuring about 6 cm in diameter and the contours were reduced back into the abdomen and because no mesh was wanted by the patient, there was no mesh placed and the repair was carried out using Prolene suture in Armida fashion after bilateral muscle component separation was carried out, right side first, left side next, making sure that the neurovascular bundles were kept out of harm's way at all times with the Prolene sutures in place securing the hernia repair reinforced with Vicryl suture at various locations as well and then reconstructing the umbilicus using the Vicryl suture as well. Irrigation performed. Hemostasis secured. Wound was brought together using Vicryl suture for the subcutaneous tissues and 3-0 Monocryl suture for skin closure in a subcuticular fashion. Surgical glue was applied. Steri-Strips were applied. The patient tolerated procedure well and was taken back to the recovery room in stable condition. MD ERNESTO Basurto/RAS/DARIA TID: [id number] RECEIPT: [id number] cc: Adriane Wise NP
[2024-10-29] MEDS: MORPHINE SULFATE INJ 2 MG/ml SYRG IV PRN (20:23)
--- NOTE | 2024-10-29 22:48 | DVHPN2 ---
Subjective Admitted here overnight for abdominal pain with a ventral hernia incarceration. Scheduled to undergo surgery today by surgeon. Changes from previous H/P or p: No Changes Eyes: No Pain, No Vision change, No Conjunctivae inflammation, No Eyelid inflammation, No Other, No Redness ENT: No Ear pain, No Ear discharge, No Nose pain, No Nose discharge, No Nose congestion, No Mouth pain, No Mouth swelling, No Throat pain, No Throat swelling, No Other Cardiovascular: No Chest Pain, No Palpitations, No Orthopnea, No Paroxysmal Noc. Dyspnea, No Edema, No Lt Headedness, No Other Respiratory: No Cough, No Dry, No Shortness of breath, No SOB with excertion, No Wheezing, No Hemoptysis, No Pleuritic Pain, No Sputum, No Other Gastrointestinal: No Nausea, No Vomiting; Abdominal Pain; No Diarrhea, No Constipation, No Melena, No Hematochezia, No Other Genitourinary: No Dysuria, No Frequency, No Incontinence, No Hematuria, No Retention, No Other Musculoskeletal: No other, No neck pain, No shoulder pain, No arm pain, No back pain, No hand pain, No leg pain, No foot pain Skin: No Rash, No Lesions, No Jaundice, No Bruising, No Other Objective Vitals Vital Signs Date Time Temp Pulse Resp B/P (MAP) Pulse Ox O2 Delivery O2 Flow Rate FiO2 10/29/24 21:00 97.8 65 17 123/61 (81) 98 97.8 10/29/24 15:00 Room Air 0 98 Intake/Output Intake and Output 10/29/24 07:00 Intake Total 1000 ml Balance 1000 ml IV Total 1000 ml # Voids 2 Exam Patient is comfortable in bed. Seen and evaluated by me earlier this morning. Heart regular rate and rhythm S1-S2. Lungs fair air movement without rales wheezes. Abdomen soft positive bowel sounds. Extremities no edema. Medications Current Medications Medications Dose Ordered Sig/Joel Route Start Time Stop Time Status Last Admin Dose Admin Sodium Chloride 1,000 ml @ 100 mls/hr Q10H IV 10/28/24 12:45 10/29/24 15:21 100 MLS/HR Temazepam 15 mg QHSP PRN PO 10/28/24 12:45 Ondansetron HCl 4 mg Q4HP PRN IV 10/28/24 12:45 10/29/24 13:43 4 MG Docusate Sodium 100 mg BIDPRN PRN PO 10/28/24 12:45 Morphine Sulfate 2 mg Q4HPRN PRN IV 10/28/24 12:45 10/29/24 20:23 2 MG Nitroglycerin 0.4 mg Q5MINP PRN SL 10/28/24 12:45 Laboratory Results Laboratory Tests 10/29/24 04:38 Chemistry Test 10/29/24 04:38 Albumin 4.1 g/dL (3.2-4.8) Calcium Level 9.4 mg/dL (8.7-10.4) Total Protein 7.6 g/dL (5.7-8.2) LFT Test 10/29/24 04:38 Alanine Aminotransferase (ALT) 12 U/L (7-40) Alkaline Phosphatase 68 U/L (46-116) Aspartate Amino Transferase (AST) 36 U/L (13-40) Total Bilirubin 1.0 mg/dL (0.2-1.0) Urinalysis Test 10/28/24 12:33 Urine Color Light-yellow (Yellow) Urine Clarity Clear (Clear) Urine pH 6.5 (5.0-9.0) Urine Specific [place] 1.010 (1.001-1.035) Urine Protein Negative (Negative) Urine Ketones Negative (Negative) Urine Blood Negative /uL (Negative) Urine Nitrite Negative (Negative) Urine Bilirubin Negative (Negative) Urine Urobilinogen Normal mg/dL (Negative) Urine Leukocyte Esterase Negative /uL (Negative) Urine RBC 1 /hpf (0 - 4) Urine Microscopic WBC < 1 /HPF (0-5) Urine Squamous Epithelial Cells Few /hpf (<5) Urine Bacteria None seen /hpf (None Seen) Urine Mucus Few (None Seen) Urine Glucose Normal mg/dL (Normal) Assessment/Plan Assessment/Plan Continue NPO. Continue current supportive care and treatment as she is on. Proceed with the surgery which she will be going soon. Otherwise further clinical management per postop recovery and recommendations from the surgeon. Plan discussed with: Other Problem List: (1) Ventral hernia (2) Incarcerated hernia (3) Acute abdominal pain Date of Service: Oct 29, 2024 Billing Provider: ALDAIR CULP MD Common Visit Codes: [id number] INP/OBS CARE(MOD) ALDAIR CULP MD Oct 29, 2024 22:48
[2024-10-30] VITALS (8 sets, daily range): BP systolic 111–135; BP diastolic 53–76; PULSE 55–82; RESP 15–21; TEMP 98–98.7; O2SAT 92–99
[2024-10-30] MEDS: TEMAZEPAM 15 MG CAP PO PRN (00:46)
[2024-10-30 07:42] LABS: Hematocrit 37.5 % (36.0-46.0); Hemoglobin 13.0 g/dL (12.2-16.2); Mean Corpuscular Hemoglobin 32.8 pg (28.0-32.0); Mean Corpuscular Volume 94.6 fL (80.0-100.0); Nucleated Red Blood Cells % 0.0 %
[2024-10-30 07:52] LABS: Calcium 9.1 mg/dL (8.7-10.4); Chloride 103 mmol/L (98-107); Potassium 4.3 mmol/L (3.5-5.1); Sodium 139 mmol/L (136-145)
[2024-10-30 07:53] LABS: Anion Gap 9 (5-15); Carbon Dioxide 27 mmol/L (20-31)
[2024-10-30 07:59] LABS: BUN/Creatinine Ratio 13.3 (10.0-20.0); Blood Urea Nitrogen 11 mg/dL (9-23); Glucose 82 mg/dL (74-106)
--- NOTE | 2024-10-30 11:46 | DVHPN2 ---
Progress Note Date Seen: Oct 30, 2024 Medical Necessity Reason Pt with a Central, PICC or Fol: No Objective vital signs Vital Sign Date Time Temp Pulse Resp B/P (MAP) Pulse Ox O2 Delivery O2 Flow Rate FiO2 10/30/24 11:07 65 18 108/53 10/30/24 08:53 98.0 95 98.0 10/30/24 08:00 Room Air* 0 21 Total Intake and Output 10/29/24 10/29/24 10/30/24 15:00 23:00 07:00 Intake Total 100 ml 100 ml 0 ml Balance 100 ml 100 ml 0 ml medications Current Medications Medications Dose Ordered Sig/Joel Route Start Time Stop Time Status Last Admin Dose Admin Sodium Chloride 1,000 ml @ 100 mls/hr Q10H IV 10/28/24 12:45 10/29/24 15:21 100 MLS/HR Temazepam 15 mg QHSP PRN PO 10/28/24 12:45 10/30/24 00:46 15 MG Ondansetron HCl 4 mg Q4HP PRN IV 10/28/24 12:45 10/29/24 13:43 4 MG Docusate Sodium 100 mg BIDPRN PRN PO 10/28/24 12:45 Morphine Sulfate 2 mg Q4HPRN PRN IV 10/28/24 12:45 10/30/24 11:07 2 MG Nitroglycerin 0.4 mg Q5MINP PRN SL 10/28/24 12:45 laboratory and microbiology Laboratory Tests 10/30/24 05:42 Test 10/30/24 05:42 Range/Units Serum Glucose 82 74-106 mg/dL Problem List/Assessment/Plan Problem List/Assessment/Plan AFEBRILE VSS ABD SOFT WOUND HEALING NO VENTRAL HERNIA RECURRENCE NO COMPLICATIONS NO BM NO FLATUS ALLOW CLEAR LIQUIDS Plan discussed with: Patient My Orders My Orders Orders - ELHAM FELIX MD Procedure Category Date Status Time Obtain Consent For: ORDERS 10/29/24 Transmitted 12:05 Obtain Consent For FELIPE 10/29/24 In Process Anesthesia 12:05 ELHAM FELIX MD Oct 30, 2024 11:46
--- NOTE | 2024-10-30 17:47 | DVHPN2 ---
Subjective Patient is still complaining of abdominal pain has been had any flatus or bowel movement yet. Changes from previous H/P or p: No Changes Eyes: No Pain, No Vision change, No Conjunctivae inflammation, No Eyelid inflammation, No Other, No Redness ENT: No Ear pain, No Ear discharge, No Nose pain, No Nose discharge, No Nose congestion, No Mouth pain, No Mouth swelling, No Throat pain, No Throat swelling, No Other Cardiovascular: No Chest Pain, No Palpitations, No Orthopnea, No Paroxysmal Noc. Dyspnea, No Edema, No Lt Headedness, No Other Respiratory: No Cough, No Dry, No Shortness of breath, No SOB with excertion, No Wheezing, No Hemoptysis, No Pleuritic Pain, No Sputum, No Other Gastrointestinal: No Nausea, No Vomiting; Abdominal Pain; No Diarrhea, No Constipation, No Melena, No Hematochezia, No Other Genitourinary: No Dysuria, No Frequency, No Incontinence, No Hematuria, No Retention, No Other Musculoskeletal: No other, No neck pain, No shoulder pain, No arm pain, No back pain, No hand pain, No leg pain, No foot pain Skin: No Rash, No Lesions, No Jaundice, No Bruising, No Other Objective Vitals Vital Signs Date Time Temp Pulse Resp B/P (MAP) Pulse Ox O2 Delivery O2 Flow Rate FiO2 10/30/24 17:00 98.4 55 17 116/69 (85) 99 98.4 10/30/24 08:00 Room Air* 0 21 Intake/Output Intake and Output 10/30/24 07:00 Intake Total 200 ml Balance 200 ml Intake Oral 0 ml IV Total 200 ml # Voids 5 Exam HEENT pupils are reactive Neck is supple CV is S1-S2 regular rate and rhythm Respiratory diminished breath sounds bases GI positive bowel sounds although sluggish, soft nondistended nontender no guarding no rigidity 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 Medications Current Medications Medications Dose Ordered Sig/Joel Route Start Time Stop Time Status Last Admin Dose Admin Sodium Chloride 1,000 ml @ 100 mls/hr Q10H IV 10/28/24 12:45 10/29/24 15:21 100 MLS/HR Temazepam 15 mg QHSP PRN PO 10/28/24 12:45 10/30/24 00:46 15 MG Ondansetron HCl 4 mg Q4HP PRN IV 10/28/24 12:45 10/29/24 13:43 4 MG Docusate Sodium 100 mg BIDPRN PRN PO 10/28/24 12:45 Morphine Sulfate 2 mg Q4HPRN PRN IV 10/28/24 12:45 10/30/24 11:07 2 MG Nitroglycerin 0.4 mg Q5MINP PRN SL 10/28/24 12:45 Laboratory Results Laboratory Tests 10/30/24 05:42 Chemistry Test 10/30/24 05:42 Calcium Level 9.1 mg/dL (8.7-10.4) Urinalysis Test 10/28/24 12:33 Urine Color Light-yellow (Yellow) Urine Clarity Clear (Clear) Urine pH 6.5 (5.0-9.0) Urine Specific [place] 1.010 (1.001-1.035) Urine Protein Negative (Negative) Urine Ketones Negative (Negative) Urine Blood Negative /uL (Negative) Urine Nitrite Negative (Negative) Urine Bilirubin Negative (Negative) Urine Urobilinogen Normal mg/dL (Negative) Urine Leukocyte Esterase Negative /uL (Negative) Urine RBC 1 /hpf (0 - 4) Urine Microscopic WBC < 1 /HPF (0-5) Urine Squamous Epithelial Cells Few /hpf (<5) Urine Bacteria None seen /hpf (None Seen) Urine Mucus Few (None Seen) Urine Glucose Normal mg/dL (Normal) Assessment/Plan Assessment/Plan 64-year-old female with a known history of liver disease/liver cirrhosis, chronic marijuana use presented to the hospital with the abdominal pain found to have 1. Large periumbilical ventral abdominal wall hernia status post laparoscopic repair with a mesh placement 2. Abdominal pain secondary to 1. 3. Liver cirrhosis 4. Calcified lesion in the liver 5. Chronic marijuana use -clear liquid diet as tolerated, follow up General surgery recommendations. Plan discussed with: Patient Date of Service: Oct 30, 2024 Billing Provider: ANSHUL ABDUL MD Common Visit Codes: [id number] INP/OBS CARE(MOD) ANSHUL ABDUL MD Oct 30, 2024 17:47
[2024-10-31] VITALS (8 sets, daily range): BP systolic 100–147; BP diastolic 56–81; PULSE 50–83; RESP 12–18; TEMP 97.5–98.9; O2SAT 94–98
[2024-10-31 07:05] LABS: Hematocrit 36.8 % (36.0-46.0); Hemoglobin 12.9 g/dL (12.2-16.2); Mean Corpuscular Hemoglobin 33.0 pg (28.0-32.0); Mean Corpuscular Volume 94.1 fL (80.0-100.0); Nucleated Red Blood Cells % 0.1 %
[2024-10-31 07:16] LABS: Chloride 105 mmol/L (98-107); Potassium 3.5 mmol/L (3.5-5.1); Sodium 140 mmol/L (136-145)
[2024-10-31 07:17] LABS: Anion Gap 6 (5-15); Calcium 8.8 mg/dL (8.7-10.4); Carbon Dioxide 29 mmol/L (20-31)
[2024-10-31 07:22] LABS: BUN/Creatinine Ratio 13.4 (10.0-20.0); Blood Urea Nitrogen 11 mg/dL (9-23); Glucose 76 mg/dL (74-106)
[2024-10-31 07:23] LABS: Magnesium 1.8 mg/dL (1.6-2.6)
--- NOTE | 2024-10-31 14:00 | DVHPN2 ---
Subjective Patient she is passing gas and having bowel movements requesting more diet. Changes from previous H/P or p: No Changes Eyes: No Pain, No Vision change, No Conjunctivae inflammation, No Eyelid inflammation, No Other, No Redness ENT: No Ear pain, No Ear discharge, No Nose pain, No Nose discharge, No Nose congestion, No Mouth pain, No Mouth swelling, No Throat pain, No Throat swelling, No Other Cardiovascular: No Chest Pain, No Palpitations, No Orthopnea, No Paroxysmal Noc. Dyspnea, No Edema, No Lt Headedness, No Other Respiratory: No Cough, No Dry, No Shortness of breath, No SOB with excertion, No Wheezing, No Hemoptysis, No Pleuritic Pain, No Sputum, No Other Gastrointestinal: No Nausea, No Vomiting; Abdominal Pain; No Diarrhea, No Constipation, No Melena, No Hematochezia, No Other Genitourinary: No Dysuria, No Frequency, No Incontinence, No Hematuria, No Retention, No Other Musculoskeletal: No other, No neck pain, No shoulder pain, No arm pain, No back pain, No hand pain, No leg pain, No foot pain Skin: No Rash, No Lesions, No Jaundice, No Bruising, No Other Objective Vitals Vital Signs Date Time Temp Pulse Resp B/P (MAP) Pulse Ox O2 Delivery O2 Flow Rate FiO2 10/31/24 13:00 98.9 83 18 147/71 (96) 98 98.9 10/31/24 08:00 Room Air* 0 21 Intake/Output Intake and Output 10/31/24 07:00 Intake Total 995 ml Output Total 250 ml Balance 745 ml Intake Oral 995 ml Output Urine Total 250 ml # Voids 2 Exam HEENT pupils are reactive Neck is supple CV is S1-S2 regular rate and rhythm Respiratory diminished breath sounds bases GI positive bowel sounds although sluggish, soft nondistended nontender no guarding no rigidity 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 Medications Current Medications Medications Dose Ordered Sig/Joel Route Start Time Stop Time Status Last Admin Dose Admin Sodium Chloride 1,000 ml @ 100 mls/hr Q10H IV 10/28/24 12:45 10/29/24 15:21 100 MLS/HR Temazepam 15 mg QHSP PRN PO 10/28/24 12:45 10/30/24 00:46 15 MG Ondansetron HCl 4 mg Q4HP PRN IV 10/28/24 12:45 10/29/24 13:43 4 MG Docusate Sodium 100 mg BIDPRN PRN PO 10/28/24 12:45 Morphine Sulfate 2 mg Q4HPRN PRN IV 10/28/24 12:45 10/31/24 11:51 2 MG Nitroglycerin 0.4 mg Q5MINP PRN SL 10/28/24 12:45 Tramadol HCl 50 mg Q8HP PRN PO 10/31/24 12:15 Laboratory Results Laboratory Tests 10/31/24 05:45 Chemistry Test 10/31/24 05:45 Calcium Level 8.8 mg/dL (8.7-10.4) Magnesium Level 1.8 mg/dL (1.6-2.6) Phosphorus Level 2.3 mg/dL (2.4-5.1) L Urinalysis Test 10/28/24 12:33 Urine Color Light-yellow (Yellow) Urine Clarity Clear (Clear) Urine pH 6.5 (5.0-9.0) Urine Specific [place] 1.010 (1.001-1.035) Urine Protein Negative (Negative) Urine Ketones Negative (Negative) Urine Blood Negative /uL (Negative) Urine Nitrite Negative (Negative) Urine Bilirubin Negative (Negative) Urine Urobilinogen Normal mg/dL (Negative) Urine Leukocyte Esterase Negative /uL (Negative) Urine RBC 1 /hpf (0 - 4) Urine Microscopic WBC < 1 /HPF (0-5) Urine Squamous Epithelial Cells Few /hpf (<5) Urine Bacteria None seen /hpf (None Seen) Urine Mucus Few (None Seen) Urine Glucose Normal mg/dL (Normal) Assessment/Plan Assessment/Plan 64-year-old female with a known history of liver disease/liver cirrhosis, chronic marijuana use presented to the hospital with the abdominal pain found to have 1. Large periumbilical ventral abdominal wall hernia status post laparoscopic repair with a mesh placement 2. Abdominal pain secondary to 1. 3. Liver cirrhosis 4. Calcified lesion in the liver 5. Chronic marijuana use -advanced to full liquid diet as tolerated, discharge plan once cleared by General surgery. Plan discussed with: Patient My Orders Orders - ANSHUL ABDUL MD Procedure Category Date Status Time Tramadol Hcl (Ultram) PHA 10/31/24 In Process 12:15 Date of Service: Oct 31, 2024 Billing Provider: ANSHUL ABDUL MD Common Visit Codes: [id number] INP/OBS CARE(MOD) ANSHUL ABDUL MD Oct 31, 2024 14:00
--- NOTE | 2024-10-31 17:30 | DVHPN2 ---
Progress Note Date Seen: Oct 31, 2024 Medical Necessity Reason Pt with a Central, PICC or Fol: No Objective vital signs Vital Sign Date Time Temp Pulse Resp B/P (MAP) Pulse Ox O2 Delivery O2 Flow Rate FiO2 10/31/24 17:00 97.9 59 18 116/72 (87) 96 97.9 10/31/24 08:00 Room Air* 0 21 Total Intake and Output 10/30/24 10/30/24 10/31/24 15:00 23:00 07:00 Intake Total 650 ml 345 ml Output Total 250 ml Balance 650 ml 95 ml medications Current Medications Medications Dose Ordered Sig/Joel Route Start Time Stop Time Status Last Admin Dose Admin Sodium Chloride 1,000 ml @ 100 mls/hr Q10H IV 10/28/24 12:45 10/29/24 15:21 100 MLS/HR Temazepam 15 mg QHSP PRN PO 10/28/24 12:45 10/30/24 00:46 15 MG Ondansetron HCl 4 mg Q4HP PRN IV 10/28/24 12:45 10/29/24 13:43 4 MG Docusate Sodium 100 mg BIDPRN PRN PO 10/28/24 12:45 Morphine Sulfate 2 mg Q4HPRN PRN IV 10/28/24 12:45 10/31/24 11:51 2 MG Nitroglycerin 0.4 mg Q5MINP PRN SL 10/28/24 12:45 Tramadol HCl 50 mg Q8HP PRN PO 10/31/24 12:15 laboratory and microbiology Laboratory Tests 10/31/24 05:45 Test 10/31/24 05:45 Range/Units Serum Glucose 76 74-106 mg/dL Problem List/Assessment/Plan Problem List/Assessment/Plan AFEBRILE VSS ABD SOFT WOUND HEALING NO VENTRAL HERNIA RECURRENCE NO COMPLICATIONS NO BM NO FLATUS ALLOW SOFT DIET CLEARED FOR DISCHARGE INSTRUCTIONS RE DIET ACTIVITY F/UP GIVEN Plan discussed with: Patient My Orders My Orders Orders - ELHAM FELIX MD Procedure Category Date Status Time Mechanical Soft Diet DIET 10/31/24 Transmitted Dinner Dietary Evaluation Review Comments: 1) Encourage optimal PO intake 2) Advance to 2g Na 80g Pro hepatic diet when medically feasible 3) Follow-up with gastroenterology/hepatology 4) Continue to monitor I&O, labs, and skin integrity Expected Outcomes/Goals: 1) appetite and labs to improve 2) diet to advance 3) GI symptoms to resolve 4) f/u in 3-5 days ELHAM FELIX MD Oct 31, 2024 17:30
[2024-11-01] VITALS (7 sets, daily range): BP systolic 110–144; BP diastolic 53–75; PULSE 52–83; RESP 12–18; TEMP 97.4–98.1; O2SAT 96–99
--- NOTE | 2024-11-01 16:17 | DVHDS2 ---
Discharge Summary Date of Admission Oct 28, 2024 at 12:40 Date of Discharge: Nov 01, 2024 Labs/Diagnostic Data: Laboratory Results Test 10/31/24 05:45 10/29/24 04:38 10/28/24 12:33 White Blood Count 7.8 10^3/uL (4.4-10.8) Red Blood Count 3.91 10^6/uL (4.0-5.20) Hemoglobin 12.9 g/dL (12.2-16.2) Hematocrit 36.8 % (36.0-46.0) Mean Corpuscular Volume 94.1 fL (80.0-100.0) Mean Corpuscular Hemoglobin 33.0 pg (28.0-32.0) Mean Corpuscular Hemoglobin Concent 35.1 g/dL (32.0-36.0) Red Cell Distribution Width 12.2 % (11.8-14.3) Platelet Count 165 10^3/uL (140-450) Mean Platelet Volume 10.3 fL (6.9-10.8) Neutrophils (%) (Auto) 39.1 % (37.0-80.0) Lymphocytes (%) (Auto) 47.8 % (10.0-50.0) Monocytes (%) (Auto) 11.9 % (0.0-12.0) Eosinophils (%) (Auto) 0.7 % (0.0-7.0) Basophils (%) (Auto) 0.5 % (0.0-2.0) Neutrophils # (Auto) 3.1 10 ^3/uL (1.6-8.6) Lymphocytes # (Auto) 3.7 10 ^3/uL (0.4-5.4) Monocytes # (Auto) 0.9 10 ^3/uL (0-1.3) Eosinophils # (Auto) 0.1 10 ^3/uL (0-0.8) Basophils # (Auto) 0 10 ^3/uL (0-0.2) Nucleated Red Blood Cells 0.1 % Sodium Level 140 mmol/L (136-145) Potassium Level 3.5 mmol/L (3.5-5.1) Chloride Level 105 mmol/L (98-107) Carbon Dioxide Level 29 mmol/L (20-31) Anion Gap 6 (5-15) Blood Urea Nitrogen 11 mg/dL (9-23) Creatinine 0.82 mg/dL (0.550-1.02) Glomerular Filtration Rate Calc 79 mL/min (>90) BUN/Creatinine Ratio 13.4 (10.0-20.0) Serum Glucose 76 mg/dL (74-106) Calcium Level 8.8 mg/dL (8.7-10.4) Phosphorus Level 2.3 mg/dL (2.4-5.1) Magnesium Level 1.8 mg/dL (1.6-2.6) Total Bilirubin 1.0 mg/dL (0.2-1.0) Aspartate Amino Transferase (AST) 36 U/L (13-40) Alanine Aminotransferase (ALT) 12 U/L (7-40) Alkaline Phosphatase 68 U/L (46-116) Total Protein 7.6 g/dL (5.7-8.2) Albumin 4.1 g/dL (3.2-4.8) Urine Color Light-yellow (Yellow) Urine Clarity Clear (Clear) Urine pH 6.5 (5.0-9.0) Urine Specific [place] 1.010 (1.001-1.035) Urine Protein Negative (Negative) Urine Ketones Negative (Negative) Urine Blood Negative /uL (Negative) Urine Nitrite Negative (Negative) Urine Bilirubin Negative (Negative) Urine Urobilinogen Normal mg/dL (Negative) Urine Leukocyte Esterase Negative /uL (Negative) Urine RBC 1 /hpf (0 - 4) Urine Microscopic WBC < 1 /HPF (0-5) Urine Squamous Epithelial Cells Few /hpf (<5) Urine Bacteria None seen /hpf (None Seen) Urine Mucus Few (None Seen) Urine Glucose Normal mg/dL (Normal) Other Laboratory Tests 10/31/24 05:45 Brief Hx & Hospital Course: 64-year-old female with a known history of liver disease/liver cirrhosis, chronic marijuana use presented to the hospital with the abdominal pain found to have large periumbilical ventral abdominal wall hernia. Patient was eventually admitted. Patient was seen by General surgery patient underwent laparoscopic repair with a mesh placement. Postoperatively patient did fairly well. Patient is currently tolerating diet. Patient does have chronic marijuana use as well as known liver cirrhosis. Patient is being discharged under stable condition with a close follow up as an outpatient with the PCP as well as General surgery in one week. Condition at Discharge: Stable Final Diagnosis/Problems List 64-year-old female with a known history of liver disease/liver cirrhosis, chronic marijuana use presented to the hospital with the abdominal pain found to have 1. Large periumbilical ventral abdominal wall hernia status post laparoscopic repair with a mesh placement 2. Abdominal pain secondary to 1. 3. Liver cirrhosis 4. Calcified lesion in the liver 5. Chronic marijuana use 6. Diabetes mellitus type 2 Discharge Disposition: Home SNF Discharge Will this Physician continue t: No Discharge Instruct/Medications Diet: Cardiac 2g Na,low cholest Diet comment: One thousand eight hundred ADA diet Activity: See Comment Activity comment: No driving, no signing legal documents no playing on machinery while on narcotics. Follow Up/Referral: Please follow up with the PCP in one week Follow up with Dr. Gillian Guaman in one week Medications: Resume home medications. Scheduled Furosemide (Furosemide), 40 MG PO DAILY Hydroxyzine Hcl (Hydroxyzine Hcl), 1 TAB PO DAILY, (Reported) Pantoprazole Sodium Sesquihydr (Protonix), 1 TAB PO BID, (Reported) Spironolactone (Aldactone), 100 MG PO DAILY Spironolactone (Aldactone), 50 MG PO DAILY, (Reported) Scheduled PRN Bismuth Subsalicylate (Sm Stomach Relief), 524 MG PO Q1HP PRN Hydrocodone-Acetaminophen (Hydrocodone Bitartrate/AC 5-325 mg), 1 TAB PO Q6HP PRN Hydromorphone Hcl (Dilaudid), 1 TAB PO TID PRN Ondansetron Odt 4MG Tab (Zofran Po), 1 TAB PO for NAUSEA / VOMITING, (Reported) Miscellaneous Medications Docusate Sodium (Colace), 100 MG PO, (Reported) Furosemide (Lasix), 40 MG PO, (Reported) Discontinued Medications Hydrocodone-Acetaminophen (Hydrocodone Bitartrate/AC 5-325 mg), 1 TAB PO Q6HP PRN Discharge Statement: "Patient was advised to return to the ER or call 911 if any headaches, dizziness, shortness of breath, chest pain, abdominal pain, bleeding, fevers, or worsening of medical condition. Patient was counseled about treatment plan, medications, possible side effects, patientverbalized understanding. All questions were answered to the best of my ability. This discharge took greater then 30 minutes in planning, reviewing documentation, counseling the patient, and discussing with other team members." ASSESSMENT ASSESSMENT Assessment 64-year-old female with a known history of liver disease/liver cirrhosis, chronic marijuana use presented to the hospital with the abdominal pain found to have 1. Large periumbilical ventral abdominal wall hernia status post laparoscopic repair with a mesh placement 2. Abdominal pain secondary to 1. 3. Liver cirrhosis 4. Calcified lesion in the liver 5. Chronic marijuana use 6. Diabetes mellitus type 2 Date of Service: Nov 01, 2024 Billing Provider: ANSHUL ABDUL MD Common Visit Codes: 61312-RAZ/OBS DISCH DAY >30min ANSHUL ABDUL MD Nov 01, 2024 16:17
== END 2024-11-01 19:18 | disposition home or self-care (01) | DRG 227 ==
LOC: ER 09:03 → OVERFLOW 12:40 → WEST WING 23:56
PROVIDERS: ADMIT Hospitalist; ATTEND Hospitalist
PROC: 0WQF0ZZ Repair Abdominal Wall, Open Approach (ICD-10-PCS; principal; 2024-10-29 12:28)
DX: K43.0 Incisional hernia with obstruction, without gangrene (principal); E11.9 Type 2 diabetes mellitus without complications; F12.90 Cannabis use, unspecified, uncomplicated; K42.0 Umbilical hernia with obstruction, without gangrene; K74.60 Unspecified cirrhosis of liver; K80.20 Calculus of gallbladder without cholecystitis without obstruction; Z88.6 Allergy status to analgesic agent; Z59.00 Homelessness unspecified; Z79.899 Other long term (current) drug therapy
CPT/HCPCS: 36415; 74176; 80048; 80053; 81001; 83735; 84100; 85025; 86850; 86900; 86901; 88302; 96361; 96374; 96375; 97116; 97163; 97530; G0378; J0131; J0690; J1100; J1885; J2003; J2405; J2704